=== PATIENT | female | born 1955 ===

== ENCOUNTER 2018-08-14 06:05 | Inpatient (IN) | payer BC ==
[2018-08-07 12:09] VITALS: BMI 25.4
[2018-08-14] MEDS ORDERED: Absorbable Gelatin Sponge Size 12-7 ONE (07:09)
[2018-08-14] MEDS ORDERED: Thrombin Topical 5,000 Int Units Spray Kit ONE (07:10)
[2018-08-14] MEDS ORDERED: Bacitracin Ointment 30 GM TUBE ONE ×2 (07:10→11:06)
[2018-08-14 07:21] LABS: BASO % 0.6 % (0.0-2.0); EOS # 0.3 K/uL (0.0-0.7); EOS % 3.7 % (0.0-4.0); HEMOGLOBIN 12.6 g/dL (12.0-16.0); LYMPH # 1.4 K/uL (1.0-4.3); LYMPH % 19.8 % (20.0-40.0); MEAN CELL VOLUME 79.5 fl (81.0-99.0); MEAN CORPUSCULAR HEMOGLOBIN 25.2 pg (27.0-31.0); MEAN CORPUSCULAR HGB CONC 31.7 g/dL (33.0-37.0); MEAN PLATELET VOLUME 8.7 fl (7.2-11.7); MONO # 0.6 K/uL (0.0-0.8); MONO % 8.3 % (0.0-10.0); NEUT # 4.9 K/uL (1.8-7.0); NEUT % 67.6 % (50.0-75.0); RBC 4.99 Mil/uL (3.80-5.20); WHITE BLOOD COUNT 7.3 K/uL (4.8-10.8)
[2018-08-14] MEDS ORDERED: Etomidate 20 mg/10ml Inj IV ONE (07:21)
[2018-08-14] MEDS ORDERED: Rocuronium 10 mg/ml (5 ml) ONE ×3 (07:21→11:43)
[2018-08-14] MEDS ORDERED: Succinylcholine Chloride 20 mg/ml Syr (5 ml) IV ONE (07:21)
--- NOTE | 2018-08-14 07:26 | CP.PCM.CON ---
History of Present Illness - History of Present Illness History of Present Illness: Orthopedic consultation Dr. Conklin 63F complains of right hip pain failed conservative mgmt and elected for THR. PMH: HTN, DM, chol, asthma, depression, anxiety PSH: left leg, tonsls, c section, varicose vein, hysterectomy, Rotator cuff, fibroid, CCTS no history of bleeding disorder, DVT, CAD/IL, CVA, stents, seizure. ALL; PCN, latex Review of Systems - Review of Systems All systems: reviewed and no additional remarkable complaints except - Musculoskeletal Musculoskeletal: As Per HPI Past Patient History - Past Medical History & Family History Past Medical History?: Yes Past Family History: Reviewed and not pertinent - Past Social History Smoking Status: Never Smoked - CARDIAC Hx Hypercholesterolemia: Yes Hx Hypertension: Yes - PULMONARY Hx Asthma: Yes - NEUROLOGICAL Hx Neurological Disorder: No - HEENT Hx HEENT Problems: No - RENAL Hx Chronic Kidney Disease: No - ENDOCRINE/METABOLIC Hx Endocrine Disorders: Yes Hx Diabetes Mellitus Type 2: Yes - HEMATOLOGICAL/ONCOLOGICAL Hx Blood Disorders: No - INTEGUMENTARY Hx Dermatological Problems: No - MUSCULOSKELETAL/RHEUMATOLOGICAL Hx Arthritis: Yes - GASTROINTESTINAL Hx Gastrointestinal Disorders: No - GENITOURINARY/GYNECOLOGICAL Hx Genitourinary Disorders: No - PSYCHIATRIC Hx Psychophysiologic Disorder: Yes Hx Anxiety: Yes Hx Substance Use: No - SURGICAL HISTORY Other/Comment: BREAST REDUCTION. Both legs vein stripping - ANESTHESIA Hx Anesthesia Reactions: Yes (x1 tachycardia w nausea) Meds Allergies/Adverse Reactions: Allergies Allergy/AdvReac Type Severity Reaction Status Date / Time codeine Allergy ANAPHYLAXIS Verified 08/14/18 07:59 latex Allergy ITCHING Verified 08/07/18 12:07 Penicillins Allergy RASH Verified 08/07/18 12:07 Physical Exam - Constitutional Appears: Well, No Acute Distress - Head Exam Head Exam: ATRAUMATIC - Extremities Exam Additional comments: +DP/PT pulses calves soft NT neg homans - Expanded Lower Extremities Exam Right Ankle exam: FULL ROM, NORMAL INSPECTION Neuro vacular tendon exam: no vascular compromise - Neurological Exam Neurological exam: Alert, Oriented x3 - Psychiatric Exam Psychiatric exam: Normal Affect, Normal Mood - Skin Skin Exam: Dry, Intact, Normal Color, Warm Results - Vital Signs Recent Vital Signs: Last Vital Signs Temp 97.9 F 08/14/18 06:54 Pulse 82 02/07/19 07:07 Resp 18 08/14/18 06:54 BP 126/72 08/14/18 06:54 Pulse Ox 99 08/14/18 06:54 - Labs Result Diagrams: 08/14/18 07:00 Labs: Laboratory Results - last 24 hr 08/14/18 08/14/18 06:50 07:00 WBC 7.3 RBC 4.99 Hgb 12.6 Hct 39.7 MCV 79.5 L MCH 25.2 L MCHC 31.7 L RDW 16.0 H Plt Count 241 MPV 8.7 Neut % (Auto) 67.6 Lymph % (Auto) 19.8 L [place] % (Auto) 8.3 Eos % (Auto) 3.7 Baso % (Auto) 0.6 Neut # (Auto) 4.9 Lymph # (Auto) 1.4 [place] # (Auto) 0.6 Eos # (Auto) 0.3 Baso # (Auto) 0.0 POC Glucose (mg/dL) 141 H Assessment & Plan (1) Primary osteoarthritis of right hip Assessment and Plan: NPO for THR T&C Status: Acute (2) HTN (hypertension) Status: Chronic (3) Diabetes mellitus Status: Chronic (4) Asthma Status: Chronic
[2018-08-14] MEDS ORDERED: Lactated Ringer's 1,000 ML IV ONE ×3 (07:30→09:10)
[2018-08-14] MEDS ORDERED: Tranexamic Acid 1,000 MG in Sodium Chloride 0.9% 100 ML IVPB SCH (07:30)
--- NOTE | 2018-08-14 07:52 | CP.PCM.HP ---
History of Present Illness - History of Present Illness History of Present Illness: Orthopedist: Dr Conklin PCP: Dejan Jonas MD Cardilolgist: Dr Ng Chief complaint: Right hip pain The patient was seen and examined in the [facility] Unit HPI: This is a 63 years old female with hx of DM, Asthma and Osteoarthritis of the right hip. She comes referring pain to the right hip since 2015 and becoming worse. She has failed conventional therapy with Physical Therapy and Analgesics. She has to use a walker to ambulate. Because of This she has decided to have surgical management with replacement of the right hip. No fever, chills, cough, SOB, palpitation diarrhea nor urinary symptoms. PMH: HTN; DM II; Asthma; HLD; Depression and anxiety; Osteoarthritis of the right hip PSH: Left rotator cuff repair x2; Left TKR; Breast Reduction; Vein stripping lower extremities SH: Never smoked; No Alcohol use; No illegal frug use; Live with family FH: States: No known family hx Allergies: PCN; Codeine; Latex Medication: Reviewed Present on Admission - Present on Admission Any Indicators Present on Admission: No History of DVT/PE: No History of Uncontrolled Diabetes: No Urinary Catheter: No Decubitus Ulcer Present: No Review of Systems - Constitutional Constitutional: absent: Anorexia, Chills, Fever - EENT Eyes: Requires Corrective Lenses. absent: Blurred Vision, Diplopia Ears: absent: Decreased Hearing, Ear Discharge, Tinnitus Nose/Mouth/Throat: absent: Epistaxis, Nasal Congestion, Sinus Pain, Sinus Pressure - Cardiovascular Cardiovascular: absent: Chest Pain, Dyspnea, Edema, Lightheadedness, Palpitations - Respiratory Respiratory: absent: Cough, Dyspnea, Wheezing, Snoring, Stridor - Gastrointestinal Gastrointestinal: absent: Abdominal Pain, Constipation, Diarrhea, Nausea, Vomiting - Genitourinary Genitourinary: absent: Dysuria, Flank Pain, Urinary Frequency - Musculoskeletal Musculoskeletal: Arthralgias. absent: Back Pain - Integumentary Integumentary: absent: Pruritus, Rash, Sores, Striae, Swelling - Neurological Neurological: absent: Confusion, Focal Weakness, Weakness - Psychiatric Psychiatric: Anxiety, Depression. absent: Panic Attacks - Endocrine Endocrine: absent: Palpitations, Polydipsia, Polyphagia, Polyuria - Hematologic/Lymphatic Hematologic: absent: Easy Bleeding, Easy Bruising Past Patient History - Past Medical History & Family History Past Medical History?: Yes Past Family History: Reviewed and not pertinent - Past Social History Smoking Status: Never Smoked Chewing Tobacco Use: No Cigar Use: No Alcohol: None Drugs: Denies, Inhalants Home Situation {Lives}: With Family - CARDIAC Hx Hypercholesterolemia: Yes Hx Hypertension: Yes - PULMONARY Hx Asthma: Yes - NEUROLOGICAL Hx Neurological Disorder: No - HEENT Hx HEENT Problems: No - RENAL Hx Chronic Kidney Disease: No - ENDOCRINE/METABOLIC Hx Endocrine Disorders: Yes Hx Diabetes Mellitus Type 2: Yes - HEMATOLOGICAL/ONCOLOGICAL Hx Blood Disorders: No - INTEGUMENTARY Hx Dermatological Problems: No - MUSCULOSKELETAL/RHEUMATOLOGICAL Hx Arthritis: Yes - GASTROINTESTINAL Hx Gastrointestinal Disorders: No - GENITOURINARY/GYNECOLOGICAL Hx Genitourinary Disorders: No - PSYCHIATRIC Hx Psychophysiologic Disorder: Yes Hx Anxiety: Yes Hx Depression: Yes Hx Substance Use: No - SURGICAL HISTORY Hx Orthopedic Surgery: Yes (Left TKR/ Left rotator cuff surgery x2) Other/Comment: BREAST REDUCTION. Both legs vein stripping - ANESTHESIA Hx Anesthesia: Yes Hx Anesthesia Reactions: Yes (x1 tachycardia w nausea) Meds Allergies/Adverse Reactions: Allergies Allergy/AdvReac Type Severity Reaction Status Date / Time codeine Allergy ANAPHYLAXIS Verified 08/14/18 07:59 latex Allergy ITCHING Verified 08/07/18 12:07 Penicillins Allergy RASH Verified 08/07/18 12:07 Physical Exam - Constitutional Appears: No Acute Distress - Head Exam Head Exam: ATRAUMATIC, NORMAL INSPECTION, NORMOCEPHALIC - Eye Exam Eye Exam: EOMI, Normal appearance Pupil Exam: NORMAL ACCOMODATION, PERRL - ENT Exam ENT Exam: Mucous Membranes Moist, Normal Exam, Normal External Ear Exam - Neck Exam Neck exam: Positive for: Normal Inspection. Negative for: Lymphadenopathy, Meningismus, Tenderness - Respiratory Exam Respiratory Exam: Clear to Auscultation Bilateral. absent: Rales, Rhonchi, Wheezes - Cardiovascular Exam Cardiovascular Exam: REGULAR RHYTHM, RRR, +S1, +S2. absent: Gallop, JVD - GI/Abdominal Exam GI & Abdominal Exam: Normal Bowel Sounds, Soft. absent: Mass, Organomegaly, Tenderness - Rectal Exam Rectal Exam: Deferred - Extremities Exam Extremities exam: Positive for: normal inspection Additional comments: Pain to the right hip on walking. Pain to the left ankle on palpation. - Back Exam Back exam: NORMAL INSPECTION. absent: CVA tenderness (L), CVA tenderness (R) - Neurological Exam Neurological exam: Alert, CN II-XII Intact, Oriented x3, Reflexes Normal - Psychiatric Exam Psychiatric exam: Normal Affect, Normal Mood - Skin Skin Exam: Dry, Intact, Normal Color, Warm Results - Vital Signs Recent Vital Signs: Last Vital Signs Temp 97.9 F 08/14/18 06:54 Pulse 82 08/14/18 07:07 Resp 18 08/14/18 06:54 BP 126/72 08/14/18 06:54 Pulse Ox 99 08/14/18 06:54 - Labs Result Diagrams: 08/14/18 07:00 Labs: Laboratory Results - last 24 hr 08/14/18 08/14/18 08/14/18 06:50 07:00 07:00 WBC 7.3 RBC 4.99 Hgb 12.6 Hct 39.7 MCV 79.5 L MCH 25.2 L MCHC 31.7 L RDW 16.0 H Plt Count 241 MPV 8.7 Neut % (Auto) 67.6 Lymph % (Auto) 19.8 L [place] % (Auto) 8.3 Eos % (Auto) 3.7 Baso % (Auto) 0.6 Neut # (Auto) 4.9 Lymph # (Auto) 1.4 [place] # (Auto) 0.6 Eos # (Auto) 0.3 Baso # (Auto) 0.0 POC Glucose (mg/dL) 141 H BBK History Checked No verified bt Assessment & Plan - Assessment and Plan (Free Text) Plan: 63 years old female with hx of DM, Asthma and Osteoarthritis of the right hip. She comes referring pain to the right hip since 2014 and becoming worse. She has failed conventional therapy with Physical Therapy and Analgesics. She has to use a walker to ambulate. Because of This she has decided to have surgical management with replacement of the right hip. #. Osteoarthritis of the right hip - Consult Orthopedic Dr Conklin - Orthopedic management - Pain management - OT/PT #. DM II - Lispro sliding scale according to accucheck - restart Januvia post surgery - Restart Glucophage post surgery if no contrast dye used #. HTN - Cozaat To begin post surgery - HCTZ if not dehydrated nor electrolyte imbalance #. Asthma - Singular - PRN Albuterol #. HLD - lipitor #. Depression and Anxiety - xanax - Cymbalta #. DVT Prophylaxis with anticoagulant On POD#1 - SCD while in bed #. Peptic ulcer prophylaxis #. Code status: Full This patient was cleared for surgery by his PMD Dr Jonas and the news analyst Dr Ng. I agree that this patient is cleared for surgery with mild to moderate cardiac and pulmonary risks. Harvey Herrera MD - Date & Time Date: 08/14/18 Time: 07:52
[2018-08-14] MEDS ORDERED: Lidocaine 1% Inj (20ml) ONE (07:57)
[2018-08-14] MEDS ORDERED: EPINEPHrine 1 mg/ml (1:1000) Inj ONE (07:57)
[2018-08-14] MEDS ORDERED: Midazolam 2 MG/2 ML VIAL ONE (08:07)
[2018-08-14] MEDS ORDERED: Morphine 1 mg/ml preservative-free Inj(Duramorph) ONE (08:08)
[2018-08-14] MEDS ORDERED: Sevoflurane - Inhalation Anesthetic Liq (250 ml) ONE (08:31)
[2018-08-14] MEDS ORDERED: EPINEPHrine 1 mg/ml (1:1000) Inj IV ONE (10:00)
[2018-08-14] MEDS ORDERED: Sodium Chloride 0.9% 500 ML IV ONE ×2 (11:00→18:33)
[2018-08-14] MEDS ORDERED: Phenylephrine 10 mg/ml Inj ONE (11:26)
[2018-08-14] MEDS ORDERED: Neostigmine 1:1000 (1 mg/ml) Inj ONE (12:03)
[2018-08-14] MEDS ORDERED: Bisacodyl 5mg EC Tab PO PRN (12:54)
[2018-08-14] MEDS ORDERED: Lactated Ringer's 1,000 ML IV SCH (13:00)
[2018-08-14] MEDS ORDERED: Sodium Chloride 0.9% 1,000 ML IV SCH ×2 (13:00→20:43)
--- NOTE | 2018-08-14 14:20 | RAD ---
Date of service: 08/14/2018 PROCEDURE: Pelvis right hip HISTORY: pt in pacu s/p THR COMPARISON: None TECHNIQUE: Standard protocol for this study/examination. FINDINGS: Satisfactory appearance/alignment of components right FLAQUITA. Expected findings in the adjacent soft tissues. IMPRESSION: Satisfactory postoperative status.
--- NOTE | 2018-08-14 16:02 | PCM.SURG1 ---
Surgeon's Initial Post Op Note - Surgeon's Notes Surgeon: Katerin Uplands Division Director: ROMI Garcia Type of Anesthesia: General Endo, Spinal Anesthesia Administered By: DR nevarez Pre-Operative Diagnosis: Primary Osteoarthritis R hip Operative Findings: as nabove. synovitis R hip Post-Operative Diagnosis: as above Operation Performed: R THR- anterior approach. femoral neck osteotomy. arthrotomy/synovectomy. release iliopsoas tendon. computer navigation Specimen/Specimens Removed: bone/ synovium/ cartilage Estimated Blood Loss: EBL {In ML}: 380 Blood Products Given: PRBC Drains Used: No Drains Post-Op Condition: Fair Date of Surgery/Procedure: 08/14/18 Time of Surgery/Procedure: 09:20 (time i8n room 7:55/ anaesthesia induction time)
[2018-08-14] MEDS ORDERED: STERILE IRRIGATING SOLUTION 15 ML IR ONE (16:22)
[2018-08-14] MEDS: Clindamycin 600mg/50ml D5W 600 MG/50 ML VIAL IVPB SCH (17:10)
[2018-08-14] MEDS ORDERED: Dextrose 50% SYRINGE Inj (50 ml) IV PRN (17:53)
[2018-08-14] MEDS ORDERED: Glucagon Recombinant 1 mg Inj IM PRN (17:53)
[2018-08-14] MEDS ORDERED: Albuterol HFA 90 mcg/actuation (8 g) INH PRN (17:57)
[2018-08-14] MEDS: Artificial Tears Opht Soln OU PRN (18:28)
--- NOTE | 2018-08-14 18:28 | CP.CCUPN ---
CCU Subjective - Physician Review Subjective (Free Text): 08/14/18 18:24 The patient was Seen/interviewed and examined by me at the bedside, Medical records reviewed and Management issues were discussed and formulated with the house staff. Events reviewed 63 years old female with PMHx of HTN, DM, Asthma and Osteoarthritis of the right hip (failed conventional therapy with Physical Therapy and Analgesics.) Admitted to the ICU following R THR- anterior approach. Procedure done under General Endo, Spinal Anesthesia and was uneventful EBL {In ML}: 380 Patient was successfully extubated, admitted to ICU hemodynamically stable, denies any chest pain or SOB CCU Objective - Vital Signs / Intake & Output Vital Signs (Last 4 hours): Vital Signs Temp Pulse Resp BP Pulse Ox 08/14/18 16:22 20 08/14/18 16:00 98.3 F 90 17 102/52 L 96 08/14/18 15:20 99 F 94 H 18 114/63 100 08/14/18 15:00 94 H 16 108/57 L 100 08/14/18 14:45 95 H 17 101/61 100 08/14/18 14:30 99 F 93 H 17 103/57 L 100 Intake and Output (Last 8hrs): Intake & Output 08/14/18 08/14/18 08/14/18 06:59 14:59 22:59 Intake Total 2675 250 Balance 2675 250 Intake: IV 2450 100 Oral 150 Blood Product 225 Other: Voiding Method Toilet - Physical Exam Head: Positive for: Atraumatic, Normocephalic Pupils: Positive for: PERRL Extroacular Muscles: Positive for: EOMI Conjunctiva: Positive for: Normal Mouth: Positive for: Moist Mucous Membranes Nose (Internal): Positive for: Normal Inspection Neck: Positive for: Normal Range of Motion, Trachea Midline. Negative for: Meningeal Signs, MIDLINE TENDERNESS, Paraspinal Tenderness, JVD, Lymphadenopathy, Bruit, Other Respiratory/Chest: Positive for: Clear to Auscultation, Good Air Exchange. Negative for: Respiratory Distress, Accessory Muscle Use Cardiovascular: Positive for: Regular Rate and Rhythm, Normal S1, S2. Negative for: Murmurs Abdomen: Positive for: Normal Bowel Sounds. Negative for: Tenderness, Distention Upper Extremity: Positive for: Normal Inspection, Capillary Refill < 2s. Negative for: Cyanosis, Edema Lower Extremity: Positive for: Normal Inspection, Capillary Refill < 2 s. Negative for: Edema, CALF TENDERNESS Neurological: Positive for: GCS=15, CN II-XII Intact, Speech Normal, Motor Func Grossly Intact, Normal Sensory Function Psychiatric: Positive for: Alert, Oriented x 3, Normal Insight, Normal Concentration - Medications Active Medications: Active Medications Generic Name Dose Route Start Last Admin Trade Name Freq PRN Reason Stop Dose Admin Acetaminophen 650 mg 08/14/18 16:00 Tylenol 325mg Tab PO Q6 MARIELA Albuterol 1 puff 08/14/18 17:57 Ventolin Hfa 90 Mcg/Actuation (8 G) INH RQ6 PRN Shortness of Breath Alprazolam 1 mg 08/15/18 09:00 Xanax PO TID [facility] Artificial Tears 2 drop 08/14/18 17:53 Artificial Tears OU Q4 PRN Dry eyes Aspirin 81 mg 08/15/18 09:00 Aspirin Chewable PO DAILY [facility] Atorvastatin Calcium 40 mg 08/14/18 22:00 Lipitor PO HS MARIELA Bisacodyl 10 mg 08/14/18 12:54 Dulcolax PO HS PRN Constipation Calcium Carbonate 1 mg 08/14/18 18:00 Oscal PO ASDIR MARIELA Dextrose 0 ml 08/14/18 17:53 Dextrose 50% Inj IV STAT PRN Hypoglycemia Protocol Protocol Dextrose 0 gm 08/14/18 17:53 Glutose 15 PO ONCE PRN Hypoglycemia Protocol Protocol Docusate Sodium 100 mg 08/14/18 17:00 08/14/18 18:09 Colace PO 100 mg BID MARIELA Administration Duloxetine HCl 60 mg 08/14/18 22:00 Cymbalta PO HS MARIELA Enoxaparin Sodium 40 mg 08/15/18 09:00 Lovenox SC DAILY [facility] Protocol Glucagon 0 mg 08/14/18 17:53 Glucagen Diagnostic Kit IM STAT PRN Hypoglycemia Protocol Protocol Home Med 1 inh 08/14/18 17:48 Budesonide/Formoterol Fumarate [Symbicort 160-4.5 Mcg Inhaler] INH BID PRN Allergy symptoms Hydrochlorothiazide 25 mg 08/15/18 09:00 Hydrodiuril PO DAILY [facility] Lactated Ringer's 1,000 mls @ 50 mls/hr 08/14/18 13:00 08/14/18 13:32 Lactated Ringer's IV 100 mls .Q20H MARIELA Administration Clindamycin Phosphate 600 mg in 50 mls @ 100 mls/hr 08/14/18 16:00 08/14/18 17:10 Cleocin IVPB 08/15/18 00:29 100 mls/hr Q8H MARIELA Administration Protocol Sodium Chloride 1,000 mls @ 80 mls/hr 08/14/18 13:00 08/14/18 18:08 Sodium Chloride 0.9% IV 08/15/18 01:29 80 mls/hr .[id number] MARIELA Administration Insulin Human Lispro 0 units 08/14/18 22:00 Humalog SC ACHS MARIELA Protocol Losartan Potassium 100 mg 08/15/18 09:00 Cozaar PO DAILY MARIELA Memantine 20 mg 08/14/18 22:00 Namenda PO HS [facility] Metformin HCl 1,000 mg 08/15/18 09:00 Glucophage PO BID MARIELA Montelukast Sodium 10 mg 08/15/18 09:00 Singulair PO DAILY [facility] Ondansetron HCl 4 mg 08/14/18 12:54 Zofran Inj IVP Q6 PRN Nausea/Vomiting Sitagliptin Phosphate 10 mg 08/14/18 22:00 Januvia PO HS [facility] - Patient Studies Lab Studies: Lab Studies 08/14/18 08/14/18 08/14/18 Range/Units 16:45 13:00 08:04 WBC (4.8-10.8) K/uL RBC (3.80-5.20) Mil/uL Hgb (12.0-16.0) g/dL Hct (34.0-47.0) % MCV (81.0-99.0) fl MCH (27.0-31.0) pg MCHC (33.0-37.0) g/dL RDW (11.5-14.5) % Plt Count (130-400) K/uL MPV (7.2-11.7) fl Neut % (Auto) (50.0-75.0) % Lymph % (Auto) (20.0-40.0) % [place] % (Auto) (0.0-10.0) % Eos % (Auto) (0.0-4.0) % Baso % (Auto) (0.0-2.0) % Neut # (Auto) (1.8-7.0) K/uL Lymph # (Auto) (1.0-4.3) K/uL [place] # (Auto) (0.0-0.8) K/uL Eos # (Auto) (0.0-0.7) K/uL Baso # (Auto) (0.0-0.2) K/uL POC Glucose (mg/dL) 214 H 208 H (65-110) mg/dL Blood Type Blood Type Confirm O POSITIVE Antibody Screen Crossmatch BBK History Checked 08/14/18 08/14/18 08/14/18 Range/Units 07:00 07:00 06:50 WBC 7.3 (4.8-10.8) K/uL RBC 4.99 (3.80-5.20) Mil/uL Hgb 12.6 (12.0-16.0) g/dL Hct 39.7 (34.0-47.0) % MCV 79.5 L (81.0-99.0) fl MCH 25.2 L (27.0-31.0) pg MCHC 31.7 L (33.0-37.0) g/dL RDW 16.0 H (11.5-14.5) % Plt Count 241 (130-400) K/uL MPV 8.7 (7.2-11.7) fl Neut % (Auto) 67.6 (50.0-75.0) % Lymph % (Auto) 19.8 L (20.0-40.0) % [place] % (Auto) 8.3 (0.0-10.0) % Eos % (Auto) 3.7 (0.0-4.0) % Baso % (Auto) 0.6 (0.0-2.0) % Neut # (Auto) 4.9 (1.8-7.0) K/uL Lymph # (Auto) 1.4 (1.0-4.3) K/uL [place] # (Auto) 0.6 (0.0-0.8) K/uL Eos # (Auto) 0.3 (0.0-0.7) K/uL Baso # (Auto) 0.0 (0.0-0.2) K/uL POC Glucose (mg/dL) 141 H (65-110) mg/dL Blood Type O POSITIVE Blood Type Confirm Antibody Screen Negative Crossmatch See Detail BBK History Checked No verified bt Laboratory Results - last 24 hr 08/14/18 08/14/18 08/14/18 06:50 07:00 07:00 WBC 7.3 RBC 4.99 Hgb 12.6 Hct 39.7 MCV 79.5 L MCH 25.2 L MCHC 31.7 L RDW 16.0 H Plt Count 241 MPV 8.7 Neut % (Auto) 67.6 Lymph % (Auto) 19.8 L [place] % (Auto) 8.3 Eos % (Auto) 3.7 Baso % (Auto) 0.6 Neut # (Auto) 4.9 Lymph # (Auto) 1.4 [place] # (Auto) 0.6 Eos # (Auto) 0.3 Baso # (Auto) 0.0 POC Glucose (mg/dL) 141 H Blood Type O POSITIVE Blood Type Confirm Antibody Screen Negative Crossmatch See Detail BBK History Checked No verified bt 08/14/18 08/14/18 08/14/18 08:04 13:00 16:45 WBC RBC Hgb Hct MCV MCH MCHC RDW Plt Count MPV Neut % (Auto) Lymph % (Auto) [place] % (Auto) Eos % (Auto) Baso % (Auto) Neut # (Auto) Lymph # (Auto) [place] # (Auto) Eos # (Auto) Baso # (Auto) POC Glucose (mg/dL) 208 H 214 H Blood Type Blood Type Confirm O POSITIVE Antibody Screen Crossmatch BBK History Checked Radiology Impressions: Radiology Impressions Hip/Pelvis X-Ray 08/14/18 13:00 IMPRESSION: Satisfactory postoperative status. Fingerstick Blood Sugar Results: 214 Review of Systems - Cardiovascular Cardiovascular: absent: As Per HPI, Acrocyanosis, Chest Pain, Chest Pain at Rest, Chest Pain with Activity, Claudication, Diaphoresis, Dyspnea, Dyspnea on Exertion, Edema, Irregular Heart Rhythm, Pain Radiating to Arm/Neck/Jaw, Leg Edema, Leg Ulcers, Lightheadedness, Orthopnea, Palpitations, Paroxysmal Nocturnal Dyspnea, Pedal Edema, Radiating Pain, Rapid Heart Rate, Slow Heart Rate, Syncope, Other, UNREMARKABLE - Respiratory Respiratory: absent: As Per HPI, Cough, Dyspnea, Hemoptysis, Dyspnea on Exertion, Wheezing, Snoring, Stridor, Pain on Inspiration, Chest Congestion, Excessive Mucous Production, Change in Mucous Color, Pain with Coughing, Other, UNREMARKABLE Critical Care Progress Note - Extremities/Vascular Does the Patient have a Central Venous Catheter?: No Does the Patient need a Central Venous Catheter?: No Does the Patient have a Islas Catheter?: No Does the Patient need a Islas Catheter?: No - Nutrition Nutrition: Nutrition Category Date Time Status Consistent Carbohydrate [DIET] Diets 08/14/18 Dinner Active Assessment/Plan (1) Primary osteoarthritis of right hip Current Visit: Yes Status: Acute (2) Asthma Current Visit: Yes Status: Chronic (3) Diabetes mellitus Current Visit: Yes Status: Chronic (4) HTN (hypertension) Current Visit: Yes Status: Chronic - Assessment and Plan (Free Text) Assessment: Admit to ICU for hemodynamic monitoring, also since she received Spinal Anesthesia and she is allergic to Codeine, She received Solumedrol, Pepcid and Benadryl Monitor Respiratory status for Respiratory depression PRN Naloxone for RR<8 IV Hydration with LR @ 100 ml/hr Perioperative Antibiotics as per Ortho NPO until fully awake and can pass the nurse bedside swallow evaluation. Clear liquid diet, Advance as tolerate PT/OT PER ORTHO Monitor urine output Restart outpatient meds BD nebs Q 6h PRN PRN Ondansetron Tight glycemic control, RISS with Coverage OOB chair, fall precautions, aspiration precaution Incentive spirometry GI/DVT PPX with SCDs, Pepcid, Start LMWH in AM if no bleed.
--- NOTE | 2018-08-14 19:16 | CP.PCM.PN ---
Subjective - Date & Time of Evaluation Date of Evaluation: 08/14/18 Time of Evaluation: 18:54 - Subjective Subjective: Patient resting comfortably in bed, denies pain and shortness of breath complained of mild puritis typical of neuraxial anesthesia with intrathecal opioids now resolved. Objective - Vital Signs/Intake and Output Vital Signs (last 24 hours): Temp Pulse Resp BP Pulse Ox 98.3 F 90 20 102/52 L 96 08/14/18 16:00 08/14/18 16:00 08/14/18 16:22 08/14/18 16:00 08/14/18 16:00 Intake and Output: 08/14/18 08/14/18 06:59 18:59 Intake Total 2925 Balance 2925 - Medications Medications: Current Medications Acetaminophen (Tylenol 325mg Tab) 650 mg PO Q6 [facility] Albuterol (Ventolin Hfa 90 Mcg/Actuation (8 G)) 1 puff INH RQ6 PRN PRN Reason: Shortness of Breath Alprazolam (Xanax) 1 mg PO TID [facility] Artificial Tears (Artificial Tears) 2 drop OU Q4 PRN PRN Reason: Dry eyes Last Admin: 08/14/18 18:28 Dose: 2 curt Aspirin (Aspirin Chewable) 81 mg PO DAILY [facility] Atorvastatin Calcium (Lipitor) 40 mg PO HS [facility] Bisacodyl (Dulcolax) 10 mg PO HS PRN PRN Reason: Constipation Calcium Carbonate (Oscal) 500 mg PO TID [facility] Dextrose (Dextrose 50% Inj) 0 ml IV STAT PRN; Protocol PRN Reason: Hypoglycemia Protocol Dextrose (Glutose 15) 0 gm PO ONCE PRN; Protocol PRN Reason: Hypoglycemia Protocol Docusate Sodium (Colace) 100 mg PO BID [facility] Last Admin: 08/14/18 18:09 Dose: 100 mg Duloxetine HCl (Cymbalta) 60 mg PO HS [facility] Enoxaparin Sodium (Lovenox) 40 mg SC DAILY [facility]; Protocol Glucagon (Glucagen Diagnostic Kit) 0 mg IM STAT PRN; Protocol PRN Reason: Hypoglycemia Protocol Hydrochlorothiazide (Hydrodiuril) 25 mg PO DAILY [facility] Lactated Ringer's (Lactated Ringer's) 1,000 mls @ 50 mls/hr IV .Q20H [facility] Last Admin: 08/14/18 13:32 Dose: 100 mls Clindamycin Phosphate (Cleocin) 600 mg in 50 mls @ 100 mls/hr IVPB Q8H [facility]; Protocol Stop: 08/15/18 00:29 Last Admin: 08/14/18 17:10 Dose: 100 mls/hr Sodium Chloride (Sodium Chloride 0.9%) 1,000 mls @ 80 mls/hr IV .[id number] [facility] Stop: 08/15/18 01:29 Last Admin: 08/14/18 18:08 Dose: 80 mls/hr Sodium Chloride (Sodium Chloride 0.9%) 500 mls @ 250 mls/hr IV .Q2H [facility] Stop: 08/14/18 20:32 Insulin Human Lispro (Humalog) 0 units SC ACHS [facility]; Protocol Losartan Potassium (Cozaar) 100 mg PO DAILY [facility] Memantine (Namenda) 20 mg PO HS [facility] Metformin HCl (Glucophage) 1,000 mg PO BID [facility] Montelukast Sodium (Singulair) 10 mg PO DAILY [facility] Ondansetron HCl (Zofran Inj) 4 mg IVP Q6 PRN PRN Reason: Nausea/Vomiting Fluticasone/Salmeterol (Advair Diskus 250/50) 1 puff INH Q12 [facility] Sitagliptin Phosphate (Januvia) 100 mg PO HS [facility] - Labs Labs: 08/14/18 07:00 - Constitutional Appears: Well - Head Exam Head Exam: NORMAL INSPECTION - Eye Exam Eye Exam: Normal appearance. absent: Periorbital swelling - ENT Exam ENT Exam: Mucous Membranes Moist Additional comments: No lingual swelling - Respiratory Exam Respiratory Exam: NORMAL BREATHING PATTERN. absent: Wheezes, Respiratory Distress, Stridor - Cardiovascular Exam Cardiovascular Exam: REGULAR RHYTHM - Skin Skin Exam: absent: Urticaria Assessment and Plan - Assessment and Plan (Free Text) Assessment: 63 y/o female s/p right total hip arthroplasty. Patient examined and interviewed prior to procedure. At that time Mrs. Bruno confirmed allergies to latex and PCN and also denied all other drug allergies when asked directly. PMD note does not document codeine allergy. No codeine allergy documented prior to procedure start time. The patient received intrathecal morphine as part of balanced anesthetic. After the procedure the patient's family gave vague history involving anaphylactic reaction to "some medication with codine" but she has taken percocet without allergic reaction. Plan: There was no indication of acute allergic reaction during surgery. The patient vital signs remained stable and peak airway pressures remained in normal range throughout the case. The patient had an ETT cuff leak prior to extubation. Upon extubation the patient's vital signs remained stable and the was no subjective or objective respiratory distress. However, given the severity of the reaction r eported by Mrs. Bruno's family she was treated empirically for an acute allergic reaction with corticosteroids as well as antihistamines. She will be observed in the ICU overnight. There is no indication of an allergic reaction at this time.
[2018-08-14] MEDS: DiphenhydrAMINE 50 mg/ml Inj IVP PRN (19:53)
[2018-08-14] MEDS: Fluticasone-Salmeterol 250-50mcg Diskus INH SCH (21:50)
[2018-08-14] MEDS: Insulin Lispro (humaLOG) 100 Units/ml Inj SC SCH (22:31)
[2018-08-14] MEDS ORDERED: DiphenhydrAMINE 50 mg/ml Inj IVP STA (22:32)
[2018-08-15] MEDS: Clindamycin 600mg/50ml D5W 600 MG/50 ML VIAL IVPB SCH (01:30)
[2018-08-15] MEDS: Artificial Tears Opht Soln OU PRN ×2 (01:54→09:12)
[2018-08-15] MEDS: DiphenhydrAMINE 50 mg/ml Inj IVP PRN (03:04)
--- NOTE | 2018-08-15 05:10 | OP ---
PROCEDURE DATE: 08/14/2018 PREOPERATIVE DIAGNOSIS: Osteoarthritis of the right hip, primary. POSTOPERATIVE DIAGNOSES: Primary osteoarthritis of the right hip, synovitis of the right hip. OPERATIVE FINDINGS: 1. Osteoarthritis of the right hip. 2. Synovitis of the right hip. 3. Iliopsoas tendon contracture. SURGEON: Tariq Coknlin MD ANDROID UI DEVELOPER: Debbie Healy, certified registered nursing emergency veterinary assistant. SECOND MIXING MACHINE TENDER: Damián Gudino PA-C OPERATION PERFORMED: 1. Right total hip replacement, anterior approach. 2. Femoral neck osteotomy (femoral neck osteotomy was given a secondary and separate diagnosis CPT code because of the complexity of obtaining the leg length equality. This accomplished with computer navigation). 3. Arthrotomy, synovectomy. 4. Release iliopsoas tendon. 5. Computer navigation. SPECIMENS REMOVED: Bone, synovium, cartilage. BLOOD LOSS: Approximately 380 mL. BLOOD PRODUCTS GIVEN: 1 unit of packed red blood cells. COMPLICATIONS: None. DRAINS: None. CONDITION: Stable. TIME OF SURGERY: Time in the room 07:55, incision time 09:20. OPERATIVE INDICATION: Sheridan Bruno is a young appearing 63-year-old woman who presents with arthritis of the right hip. The patient has failed conservative management. Pros, cons, risks and benefits of surgical approach were discussed. The concept of a dual mobility anterior approach total hip replacement has been discussed. The possibility of mechanical failure, infection, thromboembolic disease, recurrent dislocation, leg length inequality, secondary or tertiary surgery was discussed. The patient can no longer understand the discomfort and wished the surgery to be accomplished. OPERATIVE PROCEDURE: After having obtained informed consent in the above fashion, after the satisfactory induction of spinal and general anesthesia by Dr. Elmer Watson, after having identified the side, site and procedure and a critical pause/time-out after the satisfactory induction of the anesthetic, the patient identified as Sheridan Bruno in the supine position with all bony prominences well padded. The right lower extremity was prepped and free draped in the usual fashion for lower extremity surgery. [facility] traction positioner was employed. Under the surgeon's direction, the fluoroscope was positioned, video images were generated, therapeutic decisions were made therefrom. This having been accomplished again after having identified the side, site and procedure and a critical pause/time-out after the satisfactory induction of the anesthetic. Verification of the position was offered on image intensification views. After sterilely prepping and draping and after assembling the computer for computer navigation, the topographic anatomy of the hip was marked, the anterior superior iliac spine, the greater trochanter. An incision was described one fingerbreadth distal to the anterior aspect of the ASIS and four fingerbreadths distal to that approximately 3-1/2 to 4 inches in extent. This having been accomplished, the incision located three fingerbreadths posterior to the ASIS, superficial to the belly of the tensor fascia femoris muscle. The incision was again 3-1/2 to 4 inches in extent. The skin incision was carried down through the skin and subcutaneous tissue. Hemostasis controlled with Aquamantys. The fascia of the tensor fascia femoris was identified and carefully divided. The muscle was taken down from the investing fascia, and the Medacta Adson-Vargas retractor was placed. The posterior aspect of the muscle belly of the rectus femoris was identified. Hemostasis controlled with the Aquamantys. The plane inferior in the area of the fat plane is developed. A branch of the anterior aspect of the lateral femoral circumflex vessels was identified and was coagulated with the Aquamantys. The Adson-Vargas retractor, Medacta modification was placed deeper and horizontally. The fat superficial to the capsule was identified. The anterior branch of the lateral femoral circumflex vessels was identified and was controlled with suture ligature using electrocautery. The fascia was divided. The pericapsular fat was identified and was removed. The fat pad was removed as well. The acetabular margin was identified and taken down. This having been accomplished, the capsule was taken down to the area of the intertrochanteric prominence. The intertrochanteric tubercle was identified. The capsule was elevated and tagged. This having been accomplished, the capsule was divided a bit superiorly as well. This having been accomplished at this point in time, the computer navigation commences at a point approximately two fingerbreadths posterior to the anterior superior iliac spine. Using #11 blade, the two supporting threaded screws were introduced and at this point in time, the accelerometer and the optical camera were placed. This having been accomplished, the anterior pelvic plane was registered using the probe. The left anterior superior iliac spine was registered. The right anterior superior iliac spine was registered as well rendering the frontal plane of the pelvis. This having been accomplished, attention was turned back to the dissection, and the capsule having been elevated. Verification of position was offered on image intensification views. The femoral neck osteotomy was accomplished with leg-length control. The disk for the control of leg lengths had been placed on the anterior lateral aspect of the greater trochanter. Femoral neck osteotomy was accomplished. Verification of position was offered on image intensification views. At this point in time with the two turns of traction and external rotation at 25 degrees, the corkscrew was introduced into the cut femoral neck. This having been accomplished, the femoral head is registered and removed from the acetabulum. The labrum was removed as well. At this point in time, the acetabulum was exposed. The Charnley retractor having been placed deep, the acetabulum was exposed. Sequential reaming was carried out to 52 mm. Reaming was denuded of articular cartilage. At this point in time, the mouth was reamed open to 52 mm. Trialing was accomplished and found to be acceptable. Verification of position was offered by computer navigation of 40-41 degrees of abduction, inclination and approximately 17-18 degrees of anteversion. This having been accomplished, the reamings denuded of articular cartilage were used to bone graft the acetabulum. The cup was introduced and again verification of position notes 41 degrees of abduction and 17-18 degrees of anteversion. This having been accomplished, the cup having been impacted. The position was found to be excellent. Attention was turned to the femur. The iliopsoas tendon was found to be contracted, and iliopsoas tendon release was accomplished as was the pubofemoral ligament. The pubofemoral ligament was released. At this point time with external rotation of the femur, the femur was hyperflexed. Attention was turned to the leg lengths. This having been registered, the bridge of bone between the neck and the trochanter was removed. The canal was entered. The bur was used to enter the canal. The canal was further entered. The bridge of bone between the neck and the trochanter was removed using the box chisel. At this point in time, the rasp was introduced, and broaching was accomplished to a #2 femoral broach. This having been accomplished, the -3.5-mm head was applied to the neck to keep appropriate outer bearing. Trialing was accomplished. The hip was found to be stable in all planes. Verification of position was offered on image intensification views. This having been accomplished, the leg length positioning having been acceptable. The pins were removed from the anterior superior iliac spine. The #2 Medacta collarless femoral component was impacted. The -3.5 mm ceramic with a 52-mm polyethylene outer bearing was made on the back table. This was applied to the femoral stem. The hip was reduced and was found to be stable in all planes. It should be noted again the iliopsoas tendon was released. The wound was thoroughly irrigated. Hemostasis was controlled with thrombin and Gelfoam and with the FloSeal. This having been accomplished, the disk was removed. The pins were removed from the anterior superior iliac spine. The wound was thoroughly irrigated. Autograft bone grafting was carried out to the femur as it was on the acetabulum. Closures in layers with 0 Quill for the fascia on the tensor fascia femoris followed by 0 Vicryl, 2-0 Vicryl, richard for skin. The punctures in the anterior superior iliac spine were closed with interrupted Vicryl and Dermabond. Compression dressing was applied. Postoperative verification reveals excellent position of the construct. Measurement on postoperative x-ray reveals 41 degrees of abduction and 18 degrees of anteversion concordant with the W[employer]ETIVI computer navigation. The patient was transferred from the operating table to the stretcher, having tolerated the procedure well. Tariq Conklin MD
[2018-08-15 05:16] LABS: HEMOGLOBIN 10.1 g/dL (12.0-16.0); MEAN CORPUSCULAR HGB CONC 32.1 g/dL (33.0-37.0); RBC 3.88 Mil/uL (3.80-5.20); RED CELL DISTRIBUTION WIDTH 16.8 % (11.5-14.5); WHITE BLOOD COUNT 8.2 K/uL (4.8-10.8)
[2018-08-15 05:26] LABS: BLOOD UREA NITROGEN 11 mg/dl (7-17); GFR NON-AFRICAN AMERICAN > 60
[2018-08-15] MEDS: Insulin Lispro (humaLOG) 100 Units/ml Inj SC SCH ×2 (07:55→11:39)
--- NOTE | 2018-08-15 08:24 | CP.PCM.PN ---
Subjective - Date & Time of Evaluation Date of Evaluation: 08/15/18 Time of Evaluation: 08:22 - Subjective Subjective: Patient complained of itching overnight. Pain in hip controlled. Denies CP/SOB/dizziness/difficulty breathing/numbness/tingling. Objective - Vital Signs/Intake and Output Vital Signs (last 24 hours): Temp Pulse Resp BP Pulse Ox 98.5 F 71 20 110/58 L 99 08/15/18 08:00 08/15/18 08:00 08/15/18 08:00 08/15/18 08:00 08/15/18 08:00 Intake and Output: 08/15/18 08/15/18 06:59 18:59 Intake Total 1330 Output Total 1575 Balance -245 - Medications Medications: Current Medications Acetaminophen (Tylenol 325mg Tab) 650 mg PO Q6 PRN PRN Reason: Other Acetaminophen (Tylenol 325mg Tab) 650 mg PO Q6 PRN PRN Reason: Other Last Admin: 08/15/18 01:52 Dose: 650 mg Albuterol (Ventolin Hfa 90 Mcg/Actuation (8 G)) 1 puff INH RQ6 PRN PRN Reason: Shortness of Breath Alprazolam (Xanax) 1 mg PO TID [facility] Artificial Tears (Artificial Tears) 2 drop OU Q4 PRN PRN Reason: Dry eyes Last Admin: 08/15/18 01:54 Dose: 2 drp Aspirin (Aspirin Chewable) 81 mg PO DAILY [facility] Atorvastatin Calcium (Lipitor) 40 mg PO HS [facility] Last Admin: 08/14/18 21:53 Dose: 40 mg Bisacodyl (Dulcolax) 10 mg PO HS PRN PRN Reason: Constipation Calcium Carbonate (Oscal) 500 mg PO TID [facility] Last Admin: 08/14/18 21:55 Dose: 500 mg Dextrose (Dextrose 50% Inj) 0 ml IV STAT PRN; Protocol PRN Reason: Hypoglycemia Protocol Dextrose (Glutose 15) 0 gm PO ONCE PRN; Protocol PRN Reason: Hypoglycemia Protocol Diphenhydramine HCl (Benadryl) 25 mg IVP Q6 PRN PRN Reason: Itching / Pruritus Last Admin: 08/15/18 03:04 Dose: 25 mg Docusate Sodium (Colace) 100 mg PO BID [facility] Last Admin: 08/14/18 18:09 Dose: 100 mg Duloxetine HCl (Cymbalta) 60 mg PO HS [facility] Last Admin: 08/14/18 21:53 Dose: 60 mg Enoxaparin Sodium (Lovenox) 40 mg SC DAILY [facility]; Protocol Glucagon (Glucagen Diagnostic Kit) 0 mg IM STAT PRN; Protocol PRN Reason: Hypoglycemia Protocol Hydrochlorothiazide (Hydrodiuril) 25 mg PO DAILY [facility] Hydrocortisone (Cortizone 1% Cream) 1 applic TOP BID [facility] Last Admin: 08/15/18 01:53 Dose: 1 applic Sodium Chloride (Sodium Chloride 0.9%) 1,000 mls @ 125 mls/hr IV .Q8H [facility] Stop: 08/15/18 12:42 Last Admin: 08/14/18 20:45 Dose: 125 mls/hr Insulin Human Lispro (Humalog) 0 units SC ACHS [facility]; Protocol Last Admin: 08/15/18 07:55 Dose: 1 u Losartan Potassium (Cozaar) 100 mg PO DAILY [facility] Memantine (Namenda) 20 mg PO HS [facility] Last Admin: 08/14/18 21:53 Dose: 20 mg Metformin HCl (Glucophage) 1,000 mg PO BID [facility] Montelukast Sodium (Singulair) 10 mg PO DAILY [facility] Ondansetron HCl (Zofran Inj) 4 mg IVP Q6 PRN PRN Reason: Nausea/Vomiting Fluticasone/Salmeterol (Advair Diskus 250/50) 1 puff INH Q12 [facility] Last Admin: 08/14/18 21:50 Dose: 1 puff Sitagliptin Phosphate (Januvia) 100 mg PO [facility] Last Admin: 08/15/18 07:27 Dose: Not Given Tramadol HCl (Ultram) 50 mg PO Q4 PRN PRN Reason: Pain, severe (8-10) Last Admin: 08/15/18 07:39 Dose: 50 mg - Labs Labs: 08/15/18 04:35 08/15/18 04:35 - Extremities Exam Additional comments: +DP/PT pulses LLE, calves soft NT neg homans +ROM ankle/toes, no swelling or rash noted to face/chest/abd/extremities, sensation intact Assessment and Plan (1) Primary osteoarthritis of right hip Assessment & Plan: POD#1 s/p right THR -PT/OT -d/c planning -VTE proph -d/w Dr. Conklin, agrees with above Status: Acute (2) HTN (hypertension) Status: Chronic (3) Diabetes mellitus Status: Chronic (4) Asthma Status: Chronic
[2018-08-15] MEDS: Fluticasone-Salmeterol 250-50mcg Diskus INH SCH (08:53)
[2018-08-15] MEDS ORDERED: Enoxaparin 40 mg Syringe SC SCH (09:00)
--- NOTE | 2018-08-15 11:02 | CP.PCM.DIS ---
<Ingrid Dickerson - Last Filed: 08/15/18 12:33> Provider - Provider Date of Admission: 08/14/18 12:54 Attending physician: Harvey Herrera Primary care physician: PMD: Dejan Jonas MD Consults: 08/14/18 07:52 Orthopedic Consult Routine Comment: Consulting Provider: Tariq Conklin III Consulting Physician: Tariq Conklin III Reason for Consult: Right hip Osteoarthritis 08/14/18 12:54 Case Management Referral Routine Comment: Physician Instructions: Reason For Exam: Reason for Referral: Discharge Planning 08/14/18 14:08 Cardiology Consult Routine Comment: Consulting Provider: Nirail Ng Consulting Physician: Nirali Ng Reason for Consult: post op mgmt, s/p THR Time Spent in preparation of Discharge (in minutes): 30 Hospital Course - Lab Results Lab Results: Most Recent Lab Values WBC 8.2 K/uL (4.8-10.8) 08/15/18 04:35 RBC 3.88 Mil/uL (3.80-5.20) 08/15/18 04:35 Hgb 10.1 g/dL (12.0-16.0) L D 08/15/18 04:35 Hct 31.5 % (34.0-47.0) L 08/15/18 04:35 MCV 81.0 fl (81.0-99.0) 08/15/18 04:35 MCH 26.0 pg (27.0-31.0) L 08/15/18 04:35 MCHC 32.1 g/dL (33.0-37.0) L 08/15/18 04:35 RDW 16.8 % (11.5-14.5) H 08/15/18 04:35 Plt Count 138 K/uL (130-400) D 08/15/18 04:35 MPV 8.7 fl (7.2-11.7) 08/14/18 07:00 Neut % (Auto) 67.6 % (50.0-75.0) 08/14/18 07:00 Lymph % (Auto) 19.8 % (20.0-40.0) L 08/14/18 07:00 [place] % (Auto) 8.3 % (0.0-10.0) 08/14/18 07:00 Eos % (Auto) 3.7 % (0.0-4.0) 08/14/18 07:00 Baso % (Auto) 0.6 % (0.0-2.0) 08/14/18 07:00 Neut # (Auto) 4.9 K/uL (1.8-7.0) 08/14/18 07:00 Lymph # (Auto) 1.4 K/uL (1.0-4.3) 08/14/18 07:00 [place] # (Auto) 0.6 K/uL (0.0-0.8) 08/14/18 07:00 Eos # (Auto) 0.3 K/uL (0.0-0.7) 08/14/18 07:00 Baso # (Auto) 0.0 K/uL (0.0-0.2) 08/14/18 07:00 Sodium 136 mmol/l (132-148) 08/15/18 04:35 Potassium 3.5 MMOL/L (3.6-5.0) L 08/15/18 04:35 Chloride 98 mmol/L (98-107) 08/15/18 04:35 Carbon Dioxide 26 mmol/L (22-30) 08/15/18 04:35 Anion Gap 16 (10-20) 08/15/18 04:35 BUN 11 mg/dl (7-17) 08/15/18 04:35 Creatinine 0.5 mg/dl (0.7-1.2) L 08/15/18 04:35 Est GFR ( Amer) > 60 08/15/18 04:35 Est GFR (Non-Af Amer) > 60 08/15/18 04:35 POC Glucose (mg/dL) 154 mg/dL (65-110) H 08/15/18 05:05 Random Glucose 163 mg/dL (65-105) H 08/15/18 04:35 Calcium 8.0 mg/dL (8.4-10.2) L 08/15/18 04:35 Blood Type O POSITIVE 08/14/18 07:00 Blood Type Confirm O POSITIVE 08/14/18 08:04 Antibody Screen Negative 08/14/18 07:00 Crossmatch See Detail 08/14/18 07:00 BBK History Checked No verified bt 08/14/18 07:00 - Hospital Course Hospital Course: 63 year old female patient, with PMHx of DM, Asthma, OA, admitted for right hip OA. During her hospital course, patient underwent right total hip replacement with Dr. Conklin. After surgical procedure, patient's family reported patient to have previous history involving anaphylactic reaction "to medication with codine", allergy was not reported prior to procedure. No acute allergic reaction was noted during surgery with vital signs and peak airway pressures within normal limits. Given the newly reported allergy history, patient was treated empirically for acute allergic reaction with corticosteroids, antihistamines, and benadryll. Patient was transfered to ICU for overnight observation; no acute events overnight were appreciated. On day of discharge, patient successfully completed swallow test with no complications, no complaints of SOB, difficulty breathing or chest pains appreciated, patient stable for discharge to TCU for rehab per physical therapy recommendations. - Date & Time of H&P Date of H&P: 08/15/18 Time of H&P: 11:15 Discharge Exam - Head Exam Head Exam: NORMAL INSPECTION - Eye Exam Eye Exam: Normal appearance Pupil Exam: NORMAL ACCOMODATION - Respiratory Exam Respiratory Exam: NORMAL BREATHING PATTERN - Cardiovascular Exam Cardiovascular Exam: REGULAR RHYTHM - GI/Abdominal Exam GI & Abdominal Exam: Normal Bowel Sounds, Soft - Neurological Exam Neurological exam: Alert, Oriented x3 - Psychiatric Exam Psychiatric exam: Normal Affect, Normal Mood Discharge Plan - Follow Up Plan Condition: GOOD Disposition: REHAB FACILITY/REHAB UNIT Instructions: Asthma (DC), Hypertension (DC), Hypertension (GEN) <Felecia Spangler - Last Filed: 08/15/18 16:29> Provider - Provider Date of Admission: 08/14/18 12:54 Attending physician: Harvey Herrera Consults: 08/14/18 07:52 Orthopedic Consult Routine Comment: Consulting Provider: Tariq Conklin III Consulting Physician: Tariq Conklin III Reason for Consult: Right hip Osteoarthritis 08/14/18 12:54 Case Management Referral Routine Comment: Physician Instructions: Reason For Exam: Reason for Referral: Discharge Planning 08/14/18 14:08 Cardiology Consult Routine Comment: Consulting Provider: Nirali Ng Consulting Physician: Nirali Ng Reason for Consult: post op mgmt, s/p THR Hospital Course - Lab Results Lab Results: Most Recent Lab Values WBC 8.2 K/uL (4.8-10.8) 08/15/18 04:35 RBC 3.88 Mil/uL (3.80-5.20) 08/15/18 04:35 Hgb 10.1 g/dL (12.0-16.0) L D 08/15/18 04:35 Hct 31.5 % (34.0-47.0) L 08/15/18 04:35 MCV 81.0 fl (81.0-99.0) 08/15/18 04:35 MCH 26.0 pg (27.0-31.0) L 08/15/18 04:35 MCHC 32.1 g/dL (33.0-37.0) L 08/15/18 04:35 RDW 16.8 % (11.5-14.5) H 08/15/18 04:35 Plt Count 138 K/uL (130-400) D 08/15/18 04:35 MPV 8.7 fl (7.2-11.7) 08/14/18 07:00 Neut % (Auto) 67.6 % (50.0-75.0) 08/14/18 07:00 Lymph % (Auto) 19.8 % (20.0-40.0) L 08/14/18 07:00 [place] % (Auto) 8.3 % (0.0-10.0) 08/14/18 07:00 Eos % (Auto) 3.7 % (0.0-4.0) 08/14/18 07:00 Baso % (Auto) 0.6 % (0.0-2.0) 08/14/18 07:00 Neut # (Auto) 4.9 K/uL (1.8-7.0) 08/14/18 07:00 Lymph # (Auto) 1.4 K/uL (1.0-4.3) 08/14/18 07:00 [place] # (Auto) 0.6 K/uL (0.0-0.8) 08/14/18 07:00 Eos # (Auto) 0.3 K/uL (0.0-0.7) 08/14/18 07:00 Baso # (Auto) 0.0 K/uL (0.0-0.2) 08/14/18 07:00 Sodium 136 mmol/l (132-148) 08/15/18 04:35 Potassium 3.5 MMOL/L (3.6-5.0) L 08/15/18 04:35 Chloride 98 mmol/L (98-107) 08/15/18 04:35 Carbon Dioxide 26 mmol/L (22-30) 08/15/18 04:35 Anion Gap 16 (10-20) 08/15/18 04:35 BUN 11 mg/dl (7-17) 08/15/18 04:35 Creatinine 0.5 mg/dl (0.7-1.2) L 08/15/18 04:35 Est GFR ( Amer) > 60 08/15/18 04:35 Est GFR (Non-Af Amer) > 60 08/15/18 04:35 POC Glucose (mg/dL) 178 mg/dL (65-110) H 08/15/18 16:00 Random Glucose 163 mg/dL (65-105) H 08/15/18 04:35 Calcium 8.0 mg/dL (8.4-10.2) L 08/15/18 04:35 25-OH Vitamin D Total 44.5 NG/ML (30.0-100.0) 08/15/18 04:35 Blood Type O POSITIVE 08/14/18 07:00 Blood Type Confirm O POSITIVE 08/14/18 08:04 Antibody Screen Negative 08/14/18 07:00 Crossmatch See Detail 08/14/18 07:00 BBK History Checked No verified bt 08/14/18 07:00 Attending/Attestation - Attestation I have personally seen and examined this patient.: Yes I have fully participated in the care of the patient.: Yes I have reviewed all pertinent clinical information, including history, physical exam and plan: Yes Notes (Text): Primary OA , Right Hip s/p Right THR DM Type II with Hyperglycemia Asthma, mild intermittent Allergic Reaction Mild Post op acute blood loss anemia - Pain mgt -PT/OT consulted- rec TCU - will d/c pt to TCU for further Rehab -Incentive spirometry - DVT proph with Lovenox - Pt received IV steroids and Benadryl -cont home DM meds
[2018-08-15 12:21] VITALS: TEMP 98.2
[2018-08-15] MEDS ORDERED: Potassium Chloride 20 mEq ER Tab PO ONE (12:40)
[2018-08-15 15:46] VITALS: BP 105/48; PULSE 93; RESP 21; O2SAT 100
--- NOTE | 2018-08-15 15:49 | PQF ---
PROVIDER RESPONSE TEXT: Mild Intermittent Asthma REVIEWER QUERY TEXT: Asthma Specificity and Type 2 (two) queries as follows: A. Asthma is documented in the Medical Record. Please specify if the Astham is Stable or in exacerba tion etc-----.and B. . the Type Such as: -- Mild intermittent -- Mild persistent -- Moderate persistent -- Severe persistent -- Other, please specify H and P: includes:Respiratory: Exam: Clear to Auscultation Bilateral. absent: Rales, Rhonchi Asthma - Singular - PRN Albuterol The patient's Clinical Indicators include: --- Query created by: Mary Wiseman on 08/15/2018 9:12 AM Electronically signed by: Felecia Spangler MD 08/15/2018 3:45 PM
--- NOTE | 2018-08-15 15:49 | PQF ---
PROVIDER RESPONSE TEXT: DM type II with Hyperglycemia REVIEWER QUERY TEXT: Diabetic Associated Manifestations Please specify any manifestations associated / due to diabetes Such as: --Diabetes with Hyperglycemia -- Diabetes with renal manifestation -- Diabetes with neurologic manifestation -- Diabetes with ophthalmic manifestation -- Diabetes with peripheral circulatory manifestation -- Other, please specify Random glucose: 163 POC: 141->208->214->220->154 H and P: DM II - Lispro sliding scale according to accucheck - restart Januvia post surgery - Restart Glucophage post surgery if no contrast dye used RD consult pending The patient's Clinical Indicators include: --- Query created by: Mary Wiseman on 08/15/2018 1:27 PM Electronically signed by: Felecia Spangler MD 08/15/2018 3:45 PM
[2018-08-15] MEDS ORDERED: Sodium Chloride 0.9% 1,000 ML IV SCH (16:30)
[2018-08-15] MEDS ORDERED: Famotidine 40 MG/5 ML PO SCH (17:00)
--- NOTE | 2018-08-15 22:21 | PN ---
DATE: 08/15/2018 CRITICAL CARE PROGRESS NOTE LOCATION: The patient in ICU, bed 432. TIME SPENT: 35 minutes. SUBJECTIVE: The patient is seen, evaluated at the bedside. Past medical, surgical, family and social history reviewed. A 63-year-old female, history significant for diabetes, asthma, osteoarthritis of the right hip, right hip pain since 2014 and becoming worse. The patient is status post right hip replacement, postop day 1. Overnight, noted to have itching, treated with antihistamine and steroid. This morning, alert and awake, follows commands, appropriate. Complaining of ongoing itching and rash, lower abdominal wall. No sore throat. No dysphagia. No wheezing. No cough. PHYSICAL EXAMINATION: VITAL SIGNS: Temperature 98.2, heart rate of 76, blood pressure 97/42, mean arterial pressure was 60, oxygen saturation 99%, on oxygen supplement 2 liters nasal cannula. Intake 4255, output 1575, positive balance 2680 HEAD, EYES, EARS, NOSE AND THROAT: Pupils reactive. Conjunctivae pink. Sclerae white. NECK: Supple. Trachea central. CHEST: Bilateral breath sounds. Clear to auscultation. HEART: Rhythm regular. S1, S2 normal intensity. No S3, S4 gallop. No audible murmur. ABDOMEN: Bowel sounds present. Soft. Liver and spleen not palpable. Bladder not distended. EXTREMITIES: No clubbing or cyanosis. Capillary refill less than 2 seconds. No palpable cord. Dressing intact. No soiling noted. LABORATORY DATA: WBC 8.2, hemoglobin 10.1, hematocrit 31.5, platelet count of 138. SMA-7: Sodium 130, potassium 3.5, chloride 98, CO2 of 26, blood urea nitrogen 11, creatinine 0.5, random glucose 163, calcium 8. CURRENT MEDICATIONS: Tylenol 650 every 6 hours p.r.n., albuterol inhaler 1 puff every 6 hours p.r.n., Xanax 1 mg p.o. three times daily, artificial tears 2 drops OU every 4 hours, aspirin 81 mg daily, Lipitor 40 mg p.o. at bedtime, Dulcolax 10 mg p.o. bedtime p.r.n., Os-Trino 500 mg three times daily, Benadryl 25 mg IV every 6 hours p.r.n., Colace 100 mg p.o. twice daily, Cymbalta 60 mg p.o. at bedtime, Lovenox 40 subcu daily, hydrochlorothiazide 25 mg p.o. daily, hydrocortisone cream 1% one application topically twice daily, Accu-Chek with regular insulin coverage course of 100 mg p.o. daily, Namenda 20 mg p.o. at bedtime, metformin 1000 mg twice daily, Singulair 10 mg daily, Zofran formula IV every 6 hours p.r.n., Advair Diskus 1 puff every 12 hours, Ultram 50 mg p.o. every 4 hours p.r.n. IMPRESSION: 1. Postoperative day 1, status post right hip arthroplasty. Operative course uneventful. Postoperative course, noted to have itching and rash, likely medication allergy, treated with steroid and Benadryl, improving. 2. Neurologic: History of Alzheimer's dementia, on Namenda. 3. Cardiac: History of hypertension, on Cozaar 100 mg, on hold secondary to borderline blood pressure. We will resume once the blood pressure is noted to be above 113. 4. History of anxiety, on Xanax. 5. Pulmonary: Chronic asthma, on albuterol and Advair. Continue same. 6. Gastrointestinal: No acute issues noted. Acute drop in hemoglobin secondary to blood loss, status post right hip arthroplasty. 7. Mild thrombocytopenia. Closely monitor. Continue deep venous thrombosis prophylaxis. Agree with transfer out of Intensive Care Unit. David Pinedo MD
[2018-08-15] MEDS ORDERED: Hydrocortisone- 100 MG in Sodium Chloride 0.9% 100 ML IV ONE (22:34)
--- NOTE | 2018-08-18 14:40 | RAD ---
Date of service: 08/14/2018 PROCEDURE: Fluoroscopy up to 1 hr. HISTORY: COMPARISON: None TECHNIQUE: Standard protocol for this study/examination. FINDINGS: Total fluoroscopic time (continuous mode) utilized during the procedure 16.8 seconds. IMPRESSION: Less than 1 hr fluoroscopic assistance provided during performance of the procedure.
== END 2018-08-15 16:00 | DRG 470 ==
LOC: H.OPSURG 06:05 → H.ICU/CCU 12:54
PROVIDERS: ADMIT Internal Medicine; ATTEND Internal Medicine
PROC: 8E0WXBZ Computer Assisted Procedure of Trunk Region (ICD-10-PCS; 2018-08-14)
PROC: 30233N1 Transfusion of Nonautologous Red Blood Cells into Peripheral Vein, Percutaneous Approach (ICD-10-PCS; 2018-08-14)
PROC: 0SR904Z Replacement of Right Hip Joint with Ceramic on Polyethylene Synthetic Substitute, Open Approach (ICD-10-PCS; principal; 2018-08-14 07:45)
DX: M16.11 Unilateral primary osteoarthritis, right hip (principal); D62 Acute posthemorrhagic anemia; D69.6 Thrombocytopenia, unspecified; M65.851 Other synovitis and tenosynovitis, right thigh; E11.65 Type 2 diabetes mellitus with hyperglycemia; J45.20 Mild intermittent asthma, uncomplicated; L27.0 Generalized skin eruption due to drugs and medicaments taken internally; F02.80 Dementia in other diseases classified elsewhere, unspecified severity, without behavioral disturbance, psychotic disturbance, mood disturbance, and anxiety; G30.9 Alzheimer's disease, unspecified; Z96.652 Presence of left artificial knee joint; I10 Essential (primary) hypertension; E78.5 Hyperlipidemia, unspecified; E78.00 Pure hypercholesterolemia, unspecified; F41.9 Anxiety disorder, unspecified; Z88.0 Allergy status to penicillin; Z88.6 Allergy status to analgesic agent; Z91.040 Latex allergy status

== ENCOUNTER 2018-08-15 14:45 | Inpatient (IN) | payer BC ==
[2018-08-15 16:50] VITALS: BMI 27.3
[2018-08-15] MEDS ORDERED: Albuterol HFA 90 mcg/actuation (8 g) INH PRN (16:58)
[2018-08-15] MEDS ORDERED: Fluticasone-Salmeterol 250-50mcg Diskus INH SCH (21:00)
[2018-08-15] MEDS: Fluticasone-Salmeterol 250-50mcg Diskus INH SCH (21:28)
[2018-08-16] MEDS: Fluticasone-Salmeterol 250-50mcg Diskus INH SCH ×2 (09:07→21:17)
[2018-08-16] MEDS: Enoxaparin 40 mg Syringe SC SCH (09:08)
[2018-08-16] MEDS: Pantoprazole 40 mg EC Tab PO SCH (09:28)
--- NOTE | 2018-08-16 10:09 | CP.PCM.PN ---
Subjective - Date & Time of Evaluation Date of Evaluation: 08/16/18 Time of Evaluation: 09:30 - Subjective Subjective: S- pt with minimal post op discomfort; encouinter accomplished at [facility] Objective - Vital Signs/Intake and Output Vital Signs (last 24 hours): Temp Pulse Resp BP Pulse Ox 99.1 F 79 20 103/65 96 08/15/18 21:25 08/15/18 21:25 08/15/18 21:25 08/15/18 21:25 08/15/18 21:25 - Medications Medications: Current Medications Albuterol (Ventolin Hfa 90 Mcg/Actuation (8 G)) puff INH ASDIR PRN PRN Reason: Shortness of Breath Alprazolam (Xanax) 1 mg PO Q8 PRN PRN Reason: Anxiety Last Admin: 08/16/18 00:23 Dose: 1 mg Atorvastatin Calcium (Lipitor) 40 mg PO HS [facility] Last Admin: 08/15/18 21:28 Dose: 40 mg Calcium Carbonate (Oscal) 1 mg PO ASDIR [facility] Docusate Sodium (Colace) 100 mg PO BID [facility] Last Admin: 08/16/18 09:08 Dose: 100 mg Duloxetine HCl (Cymbalta) 60 mg PO HS [facility] Last Admin: 08/15/18 21:29 Dose: 60 mg Enoxaparin Sodium (Lovenox) 40 mg SC DAILY [facility]; Protocol Last Admin: 08/16/18 09:08 Dose: 40 mg Ferrous Sulfate (Feosol) 325 mg PO BID [facility] Last Admin: 08/16/18 09:28 Dose: 325 mg Hydrocortisone (Cortizone 1% Cream) 1 applic TOP BID [facility] Last Admin: 08/16/18 09:08 Dose: 1 applic Memantine (Namenda) 20 mg PO HS [facility] Last Admin: 08/15/18 21:29 Dose: 20 mg Metformin HCl (Glucophage) 1,000 mg PO BID [facility] Last Admin: 08/16/18 09:09 Dose: 1,000 mg Montelukast Sodium (Singulair) 10 mg PO DAILY [facility] Last Admin: 08/16/18 09:10 Dose: 10 mg Pantoprazole Sodium (Protonix Ec Tab) 40 mg PO DAILY [facility] Last Admin: 08/16/18 09:28 Dose: 40 mg Fluticasone/Salmeterol (Advair Diskus 250/50) 1 puff INH Q12 [facility] Last Admin: 08/16/18 09:07 Dose: 1 puff Sitagliptin Phosphate (Januvia) 100 mg PO HS [facility] Tramadol HCl (Ultram) 50 mg PO Q4 PRN PRN Reason: Pain, moderate (4-7) Tramadol HCl (Ultram) 100 mg PO Q4 PRN PRN Reason: Pain, severe (8-10) Last Admin: 08/16/18 06:46 Dose: 100 mg - Skin Additional comments: Obj systemic wnl MUSCULOSKEKLTAL STANCE/GAIT- DEFRRED R hip wpound beign N/V intact no gross deficits post op xray- reveals excellent position of construct Assessment and Plan - Assessment and Plan (Free Text) Assessment: A- s/p THR R P- full weight6 bearing /orthopedically stable
--- NOTE | 2018-08-16 14:09 | CP.PCM.HP ---
<Sultan Precious - Last Filed: 08/16/18 14:21> History of Present Illness - History of Present Illness History of Present Illness: 63 year old female patient, with PMHx of DM, Asthma, OA, s/p right THR on 08/14/18 admitted to TCU physical therapy and rehabilitation. Patient underwent right total hip replacement with Dr. Conklin on 08/14/18. After surgical procedure, patient's family reported patient to have previous history involving anaphylactic reaction "to medication with codine", allergy was not reported prior to procedure. No acute allergic reaction was noted during surgery with vital signs and peak airway pressures within normal limits. Given the newly reported allergy history, patient was treated empirically for acute allergic reaction with corticosteroids, antihistamines, and benadryll. Patient was transfered to ICU for overnight observation; no acute events overnight were ap preacited and discharged to TCU yesterday. This morning patient seen and examined. Patient reports she has pain in the surgical area and pain is controlled with pain medication. Denies any chest kaitlyn n, dyspnea, nausea, vomiting, fever or chills. ROS: all 12 systems reviewed and negative except as mentioned in HPI PMH: HTN; DM II; Asthma; HLD; Depression and anxiety; Osteoarthritis of the right hip PSH: Left rotator cuff repair x2; Left TKR; Breast Reduction; Vein stripping lower extremities, right THR on 08/14/18 SH: Never smoked; No Alcohol use; No illegal frug use; Live with family FH: States: No known family hx Allergies: PCN; Codeine; Latex Medication: Reviewed Present on Admission - Present on Admission Any Indicators Present on Admission: No Review of Systems - Review of Systems All systems: reviewed and no additional remarkable complaints except Past Patient History - Past Medical History & Family History Past Medical History?: Yes - Past Social History Smoking Status: Never Smoked - CARDIAC Hx Angina: Yes Hx Hypercholesterolemia: Yes Hx Hypertension: Yes - PULMONARY Hx Respiratory Disorders: Yes Hx Asthma: Yes - NEUROLOGICAL Hx Neurological Disorder: No - HEENT Hx HEENT Problems: No - RENAL Hx Chronic Kidney Disease: No - ENDOCRINE/METABOLIC Hx Endocrine Disorders: Yes Hx Diabetes Mellitus Type 2: Yes - HEMATOLOGICAL/ONCOLOGICAL Hx Blood Disorders: No Hx AIDS: No Hx Human Immunodeficiency Virus (HIV): No - INTEGUMENTARY Hx Dermatological Problems: No - MUSCULOSKELETAL/RHEUMATOLOGICAL Hx Musculoskeletal Disorders: Yes Hx Arthritis: Yes Hx Falls: No Hx Osteoarthritis: Yes - GASTROINTESTINAL Hx Gastrointestinal Disorders: No - GENITOURINARY/GYNECOLOGICAL Hx Genitourinary Disorders: No - PSYCHIATRIC Hx Psychophysiologic Disorder: Yes Hx Anxiety: Yes Hx Depression: Yes Hx Substance Use: No - SURGICAL HISTORY Hx Surgeries: Yes Hx Joint Replacement: Yes (LTKR) Other/Comment: BREAST REDUCTION. Both legs vein stripping. s/p right total hip replacement 08/14/18 - ANESTHESIA Hx Anesthesia Reactions: Yes (x1 tachycardia w nausea) Meds Allergies/Adverse Reactions: Allergies Allergy/AdvReac Type Severity Reaction Status Date / Time codeine Allergy ANAPHYLAXIS Verified 08/15/18 16:43 latex Allergy ITCHING Verified 08/15/18 16:43 oxycodone Allergy RASH Verified 08/16/18 09:11 Penicillins Allergy RASH Verified 08/15/18 16:43 Physical Exam - Constitutional Appears: No Acute Distress Additional comments: Sitting comfortably in a chair - Head Exam Head Exam: NORMAL INSPECTION - Eye Exam Eye Exam: Normal appearance - ENT Exam ENT Exam: Mucous Membranes Moist - Respiratory Exam Respiratory Exam: Clear to Auscultation Bilateral, NORMAL BREATHING PATTERN. absent: Rhonchi, Wheezes - Cardiovascular Exam Cardiovascular Exam: REGULAR RHYTHM, +S1, +S2 - GI/Abdominal Exam GI & Abdominal Exam: Normal Bowel Sounds, Soft. absent: Tenderness - Extremities Exam Extremities exam: Negative for: calf tenderness, pedal edema - Neurological Exam Neurological exam: Alert, Oriented x3 - Psychiatric Exam Psychiatric exam: Normal Affect, Normal Mood - Skin Skin Exam: Normal Color Results - Vital Signs Recent Vital Signs: Last Vital Signs Temp 98.7 F 08/16/18 10:08 Pulse 82 08/16/18 10:09 Resp 20 08/16/18 10:08 BP 102/65 08/16/18 10:08 Pulse Ox 98 08/16/18 10:09 - Labs Labs: Laboratory Results - last 24 hr 08/15/18 08/16/18 08/16/18 21:48 05:33 11:13 POC Glucose (mg/dL) 247 H 166 H 229 H Assessment & Plan - Assessment and Plan (Free Text) Assessment: 63 year old female patient, with PMHx of DM, Asthma, OA, s/p right THR on 08/14/18 admitted to TCU physical therapy and rehabilitation. Plan: Osteoarthritis of the right hip s/p right THR on 08/14/18 -Orthopedist Dr. Kate on board - Pain management -c/w OT/PT DM II - c/w Metformin and Januvia -accucheck ACHS HTN - Stable w/o medication now -Hold Cozaar Asthma - Singular - PRN Albuterol HLD - lipitor Depression and Anxiety - xanax - Cymbalta DVT Prophylaxis -Lovenox 40 mg SC Peptic ulcer prophylaxis -Pantoprazole 40 mg po daily Code status - Full Plan discussed with Dr. Love <Felecia Spangler - Last Filed: 08/16/18 17:36> Results - Vital Signs Recent Vital Signs: Last Vital Signs Temp 98.1 F 08/16/18 15:46 Pulse 79 08/16/18 15:46 Resp 20 08/16/18 15:46 BP 99/63 L 08/16/18 15:46 Pulse Ox 96 08/16/18 15:46 - Labs Labs: Laboratory Results - last 24 hr 08/15/18 08/16/18 08/16/18 21:48 05:33 11:13 POC Glucose (mg/dL) 247 H 166 H 229 H 08/16/18 16:38 POC Glucose (mg/dL) 167 H Attending/Attestation - Attestation I have personally seen and examined this patient.: Yes I have fully participated in the care of the patient.: Yes I have reviewed all pertinent clinical information: Yes Notes (Text): Primary OA , Right Hip s/p Right THR DM Type II with Hyperglycemia Asthma, mild intermittent Allergic Reaction to Morphine Mild Post op acute blood loss anemia - Pain mgt with Ultram - tolerating this med, also takes it at home -PT/OT , Physiatry consulted - Ortho consult -Incentive spirometry - DVT proph with Lovenox -cont home DM meds
[2018-08-16] MEDS: Sodium Chloride 0.9% 1,000 ML IV SCH (18:14)
[2018-08-17] MEDS: Sodium Chloride 0.9% 1,000 ML IV SCH (06:47)
[2018-08-17] MEDS: Fluticasone-Salmeterol 250-50mcg Diskus INH SCH ×2 (08:31→21:39)
[2018-08-17] MEDS: Enoxaparin 40 mg Syringe SC SCH (08:32)
[2018-08-17] MEDS: Pantoprazole 40 mg EC Tab PO SCH (08:34)
--- NOTE | 2018-08-17 10:27 | CP.PCM.CON ---
History of Present Illness - History of Present Illness History of Present Illness: 63 year admitted to TCU with right hip replacement,with history of OA, DM, Asthma admitted for inpatient rehab Review of Systems - Musculoskeletal Musculoskeletal: Muscle Weakness Past Patient History - Past Medical History & Family History Past Medical History?: Yes - Past Social History Smoking Status: Never Smoked - CARDIAC Hx Angina: Yes Hx Hypercholesterolemia: Yes Hx Hypertension: Yes - PULMONARY Hx Respiratory Disorders: Yes Hx Asthma: Yes - NEUROLOGICAL Hx Neurological Disorder: No - HEENT Hx HEENT Problems: No - RENAL Hx Chronic Kidney Disease: No - ENDOCRINE/METABOLIC Hx Endocrine Disorders: Yes Hx Diabetes Mellitus Type 2: Yes - HEMATOLOGICAL/ONCOLOGICAL Hx Blood Disorders: No Hx AIDS: No Hx Human Immunodeficiency Virus (HIV): No - INTEGUMENTARY Hx Dermatological Problems: No - MUSCULOSKELETAL/RHEUMATOLOGICAL Hx Musculoskeletal Disorders: Yes Hx Arthritis: Yes Hx Falls: No Hx Osteoarthritis: Yes - GASTROINTESTINAL Hx Gastrointestinal Disorders: No - GENITOURINARY/GYNECOLOGICAL Hx Genitourinary Disorders: No - PSYCHIATRIC Hx Psychophysiologic Disorder: Yes Hx Anxiety: Yes Hx Depression: Yes Hx Substance Use: No - SURGICAL HISTORY Hx Surgeries: Yes Hx Joint Replacement: Yes (LTKR) Other/Comment: BREAST REDUCTION. Both legs vein stripping. s/p right total hip replacement 08/14/18 - ANESTHESIA Hx Anesthesia Reactions: Yes (x1 tachycardia w nausea) Meds Allergies/Adverse Reactions: Allergies Allergy/AdvReac Type Severity Reaction Status Date / Time codeine Allergy ANAPHYLAXIS Verified 08/15/18 16:43 latex Allergy ITCHING Verified 08/15/18 16:43 oxycodone Allergy RASH Verified 08/16/18 09:11 Penicillins Allergy RASH Verified 08/15/18 16:43 - Medications Medications: Current Medications Albuterol (Ventolin Hfa 90 Mcg/Actuation (8 G)) 1 puff INH RQID PRN PRN Reason: Shortness of Breath Alprazolam (Xanax) 1 mg PO Q8 PRN PRN Reason: Anxiety Last Admin: 08/17/18 08:46 Dose: 1 mg Atorvastatin Calcium (Lipitor) 40 mg PO HS [facility] Last Admin: 08/16/18 21:17 Dose: 40 mg Calcium Carbonate (Oscal) 500 mg PO DAILY [facility] Last Admin: 08/17/18 08:34 Dose: 500 mg Docusate Sodium (Colace) 100 mg PO BID [facility] Last Admin: 08/17/18 08:33 Dose: 100 mg Duloxetine HCl (Cymbalta) 60 mg PO [facility] Last Admin: 08/16/18 21:17 Dose: 60 mg Enoxaparin Sodium (Lovenox) 40 mg SC DAILY [facility]; Protocol Last Admin: 08/17/18 08:32 Dose: 40 mg Ferrous Sulfate (Feosol) 325 mg PO BID [facility] Last Admin: 08/17/18 08:41 Dose: 325 mg Hydrocortisone (Cortizone 1% Cream) 1 applic TOP BID [facility] Last Admin: 08/17/18 08:31 Dose: 1 applic Sodium Chloride (Sodium Chloride 0.9%) 1,000 mls @ 80 mls/hr IV .[id number] [facility] Stop: 08/17/18 17:33 Last Admin: 08/17/18 06:47 Dose: 80 mls/hr Memantine (Namenda) 20 mg PO [facility] Last Admin: 08/16/18 21:17 Dose: 20 mg Metformin HCl (Glucophage) 1,000 mg PO BID [facility] Last Admin: 08/17/18 08:34 Dose: 1,000 mg Montelukast Sodium (Singulair) 10 mg PO DAILY [facility] Last Admin: 08/17/18 08:33 Dose: 10 mg Pantoprazole Sodium (Protonix Ec Tab) 40 mg PO DAILY [facility] Last Admin: 08/17/18 08:34 Dose: 40 mg Fluticasone/Salmeterol (Advair Diskus 250/50) 1 puff INH Q12 [facility] Last Admin: 08/17/18 08:31 Dose: 1 puff Sitagliptin Phosphate (Januvia) 100 mg PO [facility] Last Admin: 08/16/18 21:17 Dose: 100 mg Tramadol HCl (Ultram) 50 mg PO Q4 PRN PRN Reason: Pain, moderate (4-7) Tramadol HCl (Ultram) 100 mg PO Q4 PRN PRN Reason: Pain, severe (8-10) Last Admin: 08/17/18 08:32 Dose: 100 mg Physical Exam - Constitutional Appears: Well - Head Exam Head Exam: ATRAUMATIC, NORMAL INSPECTION, NORMOCEPHALIC - Eye Exam Eye Exam: EOMI, Normal appearance Pupil Exam: NORMAL ACCOMODATION, PERRL - ENT Exam ENT Exam: Mucous Membranes Moist, Normal Exam - Neck Exam Neck exam: Positive for: Normal Inspection - Respiratory Exam Respiratory Exam: Clear to Auscultation Bilateral, NORMAL BREATHING PATTERN - Cardiovascular Exam Cardiovascular Exam: REGULAR RHYTHM - GI/Abdominal Exam GI & Abdominal Exam: Normal Bowel Sounds - Rectal Exam Rectal Exam: NORMAL INSPECTION - Exam External exam: NORMAL EXTERNAL EXAM - Extremities Exam Extremities exam: Positive for: normal inspection Additional comments: right leg weakness - Back Exam Back exam: NORMAL INSPECTION - Neurological Exam Neurological exam: Alert, CN II-XII Intact - Psychiatric Exam Psychiatric exam: Normal Affect - Skin Skin Exam: Normal Color Results - Vital Signs Recent Vital Signs: Last Vital Signs Temp 98.8 F 08/17/18 10:21 Pulse 100 H 08/17/18 10:21 Resp 20 08/17/18 10:21 BP 103/69 08/17/18 10:21 Pulse Ox 80 L 08/17/18 10:21 - Labs Labs: Laboratory Results - last 24 hr 08/16/18 08/16/18 08/16/18 11:13 16:38 21:03 POC Glucose (mg/dL) 229 H 167 H 186 H 08/17/18 05:05 POC Glucose (mg/dL) 139 H Assessment & Plan (1) Primary osteoarthritis of right hip Assessment and Plan: Right hip replacement, plan for physical, occupational, therapy for range of motion, strengthening, transfers and gait training. Monitor hip incisional site, and pain meds , ultram. Later equipment prior to discharge home. Thank you for the referral. Status: Acute (2) Asthma Status: Chronic (3) Diabetes mellitus Status: Chronic (4) HTN (hypertension) Status: Chronic
[2018-08-18] MEDS: Enoxaparin 40 mg Syringe SC SCH (08:29)
[2018-08-18] MEDS: Fluticasone-Salmeterol 250-50mcg Diskus INH SCH ×2 (08:29→21:18)
[2018-08-18] MEDS: Pantoprazole 40 mg EC Tab PO SCH (08:29)
--- NOTE | 2018-08-18 08:43 | CP.PCM.PN ---
Subjective - Date & Time of Evaluation Date of Evaluation: 08/18/18 Time of Evaluation: 07:30 - Subjective Subjective: Patient seen and examined OOB to chair comfortable. Pain well controlled. No acute events over weekend. Tolerating PT well. Denies CP/SOB/fever/dizziness. Objective - Vital Signs/Intake and Output Vital Signs (last 24 hours): Temp Pulse Resp BP Pulse Ox 98.7 F 84 20 96/59 L 98 08/18/18 07:59 08/18/18 07:59 08/18/18 07:59 08/18/18 07:59 08/18/18 07:59 - Medications Medications: Current Medications Albuterol (Ventolin Hfa 90 Mcg/Actuation (8 G)) 1 puff INH RQID PRN PRN Reason: Shortness of Breath Alprazolam (Xanax) 1 mg PO Q8 PRN PRN Reason: Anxiety Last Admin: 08/17/18 08:46 Dose: 1 mg Atorvastatin Calcium (Lipitor) 40 mg PO [facility] Last Admin: 08/17/18 21:48 Dose: 40 mg Calcium Carbonate (Oscal) 500 mg PO DAILY [facility] Last Admin: 08/18/18 08:30 Dose: 500 mg Docusate Sodium (Colace) 100 mg PO BID [facility] Last Admin: 08/18/18 08:29 Dose: 100 mg Duloxetine HCl (Cymbalta) 60 mg PO [facility] Last Admin: 08/17/18 21:48 Dose: 60 mg Enoxaparin Sodium (Lovenox) 40 mg SC DAILY [facility]; Protocol Last Admin: 08/18/18 08:29 Dose: 40 mg Ferrous Sulfate (Feosol) 325 mg PO BID [facility] Last Admin: 08/18/18 08:38 Dose: 325 mg Hydrocortisone (Cortizone 1% Cream) 1 applic TOP BID [facility] Last Admin: 08/18/18 08:31 Dose: 1 applic Lactulose (Enulose) 20 gm PO Q12 PRN PRN Reason: Constipation Last Admin: 08/18/18 06:57 Dose: 20 gm Memantine (Namenda) 20 mg PO [facility] Last Admin: 08/17/18 21:48 Dose: 20 mg Metformin HCl (Glucophage) 1,000 mg PO BID [facility] Last Admin: 08/18/18 08:30 Dose: 1,000 mg Montelukast Sodium (Singulair) 10 mg PO DAILY [facility] Last Admin: 08/18/18 08:38 Dose: 10 mg Pantoprazole Sodium (Protonix Ec Tab) 40 mg PO DAILY [facility] Last Admin: 08/18/18 08:29 Dose: 40 mg Fluticasone/Salmeterol (Advair Diskus 250/50) 1 puff INH Q12 [facility] Last Admin: 08/18/18 08:29 Dose: 1 puff Sitagliptin Phosphate (Januvia) 100 mg PO HS [facility] Last Admin: 08/17/18 21:48 Dose: 100 mg Tramadol HCl (Ultram) 50 mg PO Q4 PRN PRN Reason: Pain, moderate (4-7) Tramadol HCl (Ultram) 100 mg PO Q4 PRN PRN Reason: Pain, severe (8-10) Last Admin: 08/18/18 08:27 Dose: 100 mg - Extremities Exam Additional comments: R hip: Dressings CDI Incision CDI with richard, portal sites CDI with nylon sutures mild to moderate thigh swelling 2nd to surgery sensation intact SP/DP/TN motor intact EHL/FHL/TA/G pedal pulses intact calves soft NT b/l Assessment and Plan (1) Status post total hip replacement, right Assessment & Plan: POD #4 S/P R FLAQUITA -PT/OT FWB RLE -DVT ppx -Dressings changed -orthopedically stable -above d/w Dr. Conklin in agreement Status: Acute
[2018-08-19] MEDS: Enoxaparin 40 mg Syringe SC SCH (08:36)
[2018-08-19] MEDS: Fluticasone-Salmeterol 250-50mcg Diskus INH SCH ×2 (08:37→21:54)
[2018-08-19] MEDS: Pantoprazole 40 mg EC Tab PO SCH (08:38)
--- NOTE | 2018-08-19 09:49 | CP.PCM.PN ---
Subjective - Date & Time of Evaluation Date of Evaluation: 08/19/18 Time of Evaluation: 10:00 - Subjective Subjective: Patient seen and examined bedside . Lying in bed in NAD. Complains of pain to her right hip , burning in nature , pain to her shoulders and wrists. No acute issues overnight . Participating with PT Appears slightly sleepy during the interview Objective - Vital Signs/Intake and Output Vital Signs (last 24 hours): Temp Pulse Resp BP Pulse Ox 99.5 F 85 20 99/60 L 96 08/19/18 07:38 08/19/18 07:38 08/19/18 07:38 08/19/18 07:38 08/19/18 07:38 - Medications Medications: Current Medications Albuterol (Ventolin Hfa 90 Mcg/Actuation (8 G)) 1 puff INH RQID PRN PRN Reason: Shortness of Breath Alprazolam (Xanax) 1 mg PO Q8@0600,1400,2200 [facility] Last Admin: 08/19/18 05:32 Dose: 1 mg Atorvastatin Calcium (Lipitor) 40 mg PO [facility] Last Admin: 08/18/18 21:18 Dose: 40 mg Calcium Carbonate (Oscal) 500 mg PO DAILY [facility] Last Admin: 08/19/18 08:38 Dose: 500 mg Docusate Sodium (Colace) 100 mg PO BID [facility] Last Admin: 08/19/18 08:38 Dose: 100 mg Duloxetine HCl (Cymbalta) 60 mg PO HS [facility] Last Admin: 08/18/18 21:25 Dose: 60 mg Enoxaparin Sodium (Lovenox) 40 mg SC DAILY [facility]; Protocol Last Admin: 08/19/18 08:36 Dose: 40 mg Ferrous Sulfate (Feosol) 325 mg PO BID [facility] Last Admin: 08/19/18 08:37 Dose: 325 mg Hydrocortisone (Cortizone 1% Cream) 1 applic TOP BID [facility] Last Admin: 08/19/18 08:39 Dose: Not Given Lactulose (Enulose) 20 gm PO Q12 PRN PRN Reason: Constipation Last Admin: 08/18/18 06:57 Dose: 20 gm Memantine (Namenda) 20 mg PO DAILY [facility] Last Admin: 08/19/18 09:35 Dose: 20 mg Metformin HCl (Glucophage) 1,000 mg PO BID [facility] Last Admin: 08/19/18 08:38 Dose: 1,000 mg Montelukast Sodium (Singulair) 10 mg PO DAILY [facility] Last Admin: 08/19/18 08:39 Dose: 10 mg Ondansetron HCl (Zofran Odt) 4 mg PO Q8H PRN PRN Reason: Nausea/Vomiting Pantoprazole Sodium (Protonix Ec Tab) 40 mg PO DAILY [facility] Last Admin: 08/19/18 08:38 Dose: 40 mg Fluticasone/Salmeterol (Advair Diskus 250/50) 1 puff INH Q12 [facility] Last Admin: 08/19/18 08:37 Dose: 1 puff Sitagliptin Phosphate (Januvia) 100 mg PO HS [facility] Last Admin: 08/18/18 21:18 Dose: 100 mg Tramadol HCl (Ultram) 50 mg PO Q4 PRN PRN Reason: Pain, moderate (4-7) Tramadol HCl (Ultram) 100 mg PO Q4 PRN PRN Reason: Pain, severe (8-10) Last Admin: 08/19/18 09:33 Dose: 100 mg - Constitutional Appears: Non-toxic, No Acute Distress - Head Exam Head Exam: ATRAUMATIC, NORMOCEPHALIC - Eye Exam Eye Exam: EOMI, PERRL Pupil Exam: NORMAL ACCOMODATION - ENT Exam ENT Exam: Mucous Membranes Moist, Normal Exam - Neck Exam Neck Exam: Full ROM, Normal Inspection - Respiratory Exam Respiratory Exam: Clear to Ausculation Bilateral, NORMAL BREATHING PATTERN. absent: Rhonchi, Wheezes, Respiratory Distress - Cardiovascular Exam Cardiovascular Exam: REGULAR RHYTHM, RRR, +S1, +S2. absent: JVD - GI/Abdominal Exam GI & Abdominal Exam: Soft, Normal Bowel Sounds. absent: Distended, Guarding, Rebound - Rectal Exam Rectal Exam: Deferred - Extremities Exam Extremities Exam: Normal Capillary Refill. absent: Calf Tenderness, Pedal Edema Additional comments: right hip surgical incision with dressing in place - Back Exam Back Exam: NORMAL INSPECTION - Neurological Exam Neurological Exam: Alert, Awake, CN II-XII Intact, Oriented x3 - Psychiatric Exam Psychiatric exam: Flat Affect - Skin Skin Exam: Dry, Warm Assessment and Plan - Assessment and Plan (Free Text) Assessment: 63 year old female patient, with PMHx of DM, Asthma, OA, s/p right THR on 08/14/18 admitted to TCU for physical therapy and rehabilitation. Participating with PT 1.Osteoarthritis of the right hip s/p right THR on 08/14/18 participating with PT Orthopedically stable Continue pain management surgical wound healing well with dressing on Lovenox for DVt prophylaxis Orthopedist Dr. Kate on board Check CBC , BMP 2.DM II controlled continue Metformin and Januvia accucheck ACHS, diabetic diet , insulin coverage 3.HTN on the lower side Hold Cozaar 4.Asthma stable on Singular and Advir PRN Albuterol 5. HLD on lipitor 6 Depression and Anxiety patient appears somewhat drowsy , sleepy Will decrease dose on Xanax and give PRN Decrease namenda from 20 to 10 mg daily . Continue Cymbalta 7.Dementia patient is on namenda that is dementia medication started from her PMD. Will decrease dose to 10 mg daily since she appears somewhat drowsy 8.DVT Prophylaxis on Lovenox 40 mg SC 9.Peptic ulcer prophylaxis Pantoprazole 40 mg po daily 10.Code status Full
[2018-08-20 06:27] LABS: HEMOGLOBIN 8.3 g/dL (12.0-16.0); MEAN CELL VOLUME 80.3 fl (81.0-99.0); MEAN CORPUSCULAR HEMOGLOBIN 26.4 pg (27.0-31.0); MEAN CORPUSCULAR HGB CONC 32.9 g/dL (33.0-37.0); RBC 3.16 Mil/uL (3.80-5.20); WHITE BLOOD COUNT 5.9 K/uL (4.8-10.8)
[2018-08-20 06:43] LABS: BLOOD UREA NITROGEN 7 mg/dl (7-17); CALCIUM 8.7 mg/dL (8.4-10.2); GFR NON-AFRICAN AMERICAN > 60
[2018-08-20] MEDS: Fluticasone-Salmeterol 250-50mcg Diskus INH SCH ×2 (08:18→21:47)
[2018-08-20] MEDS: Enoxaparin 40 mg Syringe SC SCH (08:19)
[2018-08-20] MEDS: Pantoprazole 40 mg EC Tab PO SCH (08:21)
--- NOTE | 2018-08-20 10:21 | CP.PCM.PN ---
Subjective - Date & Time of Evaluation Date of Evaluation: 08/20/18 Time of Evaluation: 08:00 - Subjective Subjective: Patient seen and examined at bedside comfortable. Pain improving, still moderate. Tolerating PT well. No other complaints. Objective - Vital Signs/Intake and Output Vital Signs (last 24 hours): Temp Pulse Resp BP Pulse Ox 98.5 F 83 20 98/59 L 97 08/20/18 08:17 08/20/18 08:17 08/20/18 08:17 08/20/18 08:17 08/20/18 08:17 - Medications Medications: Current Medications Albuterol (Ventolin Hfa 90 Mcg/Actuation (8 G)) 1 puff INH RQID PRN PRN Reason: Shortness of Breath Alprazolam (Xanax) 0.5 mg PO Q8 PRN PRN Reason: Anxiety Last Admin: 08/20/18 08:26 Dose: 0.5 mg Atorvastatin Calcium (Lipitor) [address] [facility] Last Admin: 08/19/18 21:54 Dose: 40 mg Calcium Carbonate (Oscal) 500 mg PO DAILY [facility] Last Admin: 08/20/18 08:19 Dose: 500 mg Docusate Sodium (Colace) 100 mg PO BID [facility] Last Admin: 08/20/18 08:18 Dose: 100 mg Duloxetine HCl (Cymbalta) [address] [facility] Last Admin: 08/19/18 21:54 Dose: 60 mg Enoxaparin Sodium (Lovenox) 40 mg SC DAILY [facility]; Protocol Last Admin: 08/20/18 08:19 Dose: 40 mg Ferrous Sulfate (Feosol) 325 mg PO BID [facility] Last Admin: 08/20/18 08:19 Dose: 325 mg Hydrocortisone (Cortizone 1% Cream) 1 applic TOP BID [facility] Last Admin: 08/20/18 08:19 Dose: Not Given Lactulose (Enulose) 20 gm PO Q12 PRN PRN Reason: Constipation Last Admin: 08/18/18 06:57 Dose: 20 gm Memantine (Namenda) 10 mg PO DAILY [facility] Last Admin: 08/20/18 08:19 Dose: 10 mg Metformin HCl (Glucophage) 1,000 mg PO BID [facility] Last Admin: 08/20/18 08:19 Dose: 1,000 mg Montelukast Sodium (Singulair) 10 mg PO 2100 [facility] Ondansetron HCl (Zofran Odt) 4 mg PO Q8H PRN PRN Reason: Nausea/Vomiting Pantoprazole Sodium (Protonix Ec Tab) 40 mg PO DAILY [facility] Last Admin: 08/20/18 08:21 Dose: 40 mg Fluticasone/Salmeterol (Advair Diskus 250/50) 1 puff INH Q12 [facility] Last Admin: 08/20/18 08:18 Dose: 1 puff Sitagliptin Phosphate (Januvia) 100 mg PO HS [facility] Last Admin: 08/19/18 21:54 Dose: 100 mg Tramadol HCl (Ultram) 50 mg PO Q4 PRN PRN Reason: Pain, moderate (4-7) Tramadol HCl (Ultram) 100 mg PO Q4 PRN PRN Reason: Pain, severe (8-10) Last Admin: 08/20/18 08:26 Dose: 100 mg - Labs Labs: 08/20/18 05:30 08/20/18 05:30 - Extremities Exam Additional comments: R hip: Dressings CDI sensation intact SP/DP/TN motor intact EHL/FHL/TA/G pedal pulses intact calves soft NT b/l Assessment and Plan (1) Status post total hip replacement, right Assessment & Plan: POD #6 S/P R FLAQUITA -PT/OT FWB RLE -DVT ppx -orthopedically stable -above d/w Dr. Conklin in agreement Status: Acute
--- NOTE | 2018-08-20 11:31 | CP.PCM.PN ---
Subjective - Date & Time of Evaluation Date of Evaluation: 08/18/18 Time of Evaluation: 16:00 - Subjective Subjective: no acute complaints at present Objective - Vital Signs/Intake and Output Vital Signs (last 24 hours): Temp Pulse Resp BP Pulse Ox 98.5 F 83 20 98/59 L 97 08/20/18 08:17 08/20/18 08:17 08/20/18 08:17 08/20/18 08:17 08/20/18 08:17 - Medications Medications: Current Medications Albuterol (Ventolin Hfa 90 Mcg/Actuation (8 G)) 1 puff INH RQID PRN PRN Reason: Shortness of Breath Alprazolam (Xanax) 0.5 mg PO Q8 PRN PRN Reason: Anxiety Last Admin: 08/20/18 08:26 Dose: 0.5 mg Atorvastatin Calcium (Lipitor) 40 mg PO HS [facility] Last Admin: 08/19/18 21:54 Dose: 40 mg Calcium Carbonate (Oscal) 500 mg PO DAILY [facility] Last Admin: 08/20/18 08:19 Dose: 500 mg Docusate Sodium (Colace) 100 mg PO BID [facility] Last Admin: 08/20/18 08:18 Dose: 100 mg Duloxetine HCl (Cymbalta) 60 mg PO HS [facility] Last Admin: 08/19/18 21:54 Dose: 60 mg Enoxaparin Sodium (Lovenox) 40 mg SC DAILY [facility]; Protocol Last Admin: 08/20/18 08:19 Dose: 40 mg Ferrous Sulfate (Feosol) 325 mg PO BID [facility] Last Admin: 08/20/18 08:19 Dose: 325 mg Hydrocortisone (Cortizone 1% Cream) 1 applic TOP BID [facility] Last Admin: 08/20/18 08:19 Dose: Not Given Lactulose (Enulose) 20 gm PO Q12 PRN PRN Reason: Constipation Last Admin: 08/18/18 06:57 Dose: 20 gm Memantine (Namenda) 10 mg PO DAILY [facility] Last Admin: 08/20/18 08:19 Dose: 10 mg Metformin HCl (Glucophage) 1,000 mg PO BID [facility] Last Admin: 08/20/18 08:19 Dose: 1,000 mg Montelukast Sodium (Singulair) 10 mg PO 2100 [facility] Ondansetron HCl (Zofran Odt) 4 mg PO Q8H PRN PRN Reason: Nausea/Vomiting Pantoprazole Sodium (Protonix Ec Tab) 40 mg PO DAILY [facility] Last Admin: 08/20/18 08:21 Dose: 40 mg Fluticasone/Salmeterol (Advair Diskus 250/50) 1 puff INH Q12 [facility] Last Admin: 08/20/18 08:18 Dose: 1 puff Sitagliptin Phosphate (Januvia) 100 mg PO HS [facility] Last Admin: 08/19/18 21:54 Dose: 100 mg Tramadol HCl (Ultram) 50 mg PO Q4 PRN PRN Reason: Pain, moderate (4-7) Tramadol HCl (Ultram) 100 mg PO Q4 PRN PRN Reason: Pain, severe (8-10) Last Admin: 08/20/18 08:26 Dose: 100 mg - Labs Labs: 08/20/18 05:30 08/20/18 05:30 - Constitutional Appears: Well - Head Exam Head Exam: ATRAUMATIC, NORMAL INSPECTION, NORMOCEPHALIC - Eye Exam Eye Exam: EOMI, Normal appearance, PERRL Pupil Exam: NORMAL ACCOMODATION - ENT Exam ENT Exam: Mucous Membranes Moist, Normal Exam - Neck Exam Neck Exam: Full ROM, Normal Inspection - Respiratory Exam Respiratory Exam: Clear to Ausculation Bilateral, NORMAL BREATHING PATTERN - Cardiovascular Exam Cardiovascular Exam: REGULAR RHYTHM - GI/Abdominal Exam GI & Abdominal Exam: Soft, Normal Bowel Sounds - Rectal Exam Rectal Exam: NORMAL INSPECTION - Exam External exam: NORMAL EXTERNAL EXAM - Extremities Exam Extremities Exam: Full ROM, Normal Capillary Refill, Normal Inspection - Back Exam Back Exam: NORMAL INSPECTION - Neurological Exam Neurological Exam: Alert Neuro motor strength exam: Right Lower Extremity: 3 - Psychiatric Exam Psychiatric exam: Normal Affect - Skin Skin Exam: Intact Assessment and Plan (1) Primary osteoarthritis of right hip Assessment & Plan: r THR plan for physical, occupational, therapy monitor skin, pain Status: Acute (2) Asthma Status: Chronic (3) Diabetes mellitus Status: Chronic (4) HTN (hypertension) Status: Chronic
--- NOTE | 2018-08-20 11:35 | CP.PCM.PN ---
Subjective - Date & Time of Evaluation Date of Evaluation: 08/20/18 Time of Evaluation: 11:35 - Subjective Subjective: patient with right leg mild discomfort Objective - Vital Signs/Intake and Output Vital Signs (last 24 hours): Temp Pulse Resp BP Pulse Ox 98.5 F 83 20 98/59 L 97 08/20/18 08:17 08/20/18 08:17 08/20/18 08:17 08/20/18 08:17 08/20/18 08:17 - Medications Medications: Current Medications Albuterol (Ventolin Hfa 90 Mcg/Actuation (8 G)) 1 puff INH RQID PRN PRN Reason: Shortness of Breath Alprazolam (Xanax) 0.5 mg PO Q8 PRN PRN Reason: Anxiety Last Admin: 08/20/18 08:26 Dose: 0.5 mg Atorvastatin Calcium (Lipitor) 40 mg PO HS [facility] Last Admin: 08/19/18 21:54 Dose: 40 mg Calcium Carbonate (Oscal) 500 mg PO DAILY [facility] Last Admin: 08/20/18 08:19 Dose: 500 mg Docusate Sodium (Colace) 100 mg PO BID [facility] Last Admin: 08/20/18 08:18 Dose: 100 mg Duloxetine HCl (Cymbalta) 60 mg PO HS [facility] Last Admin: 08/19/18 21:54 Dose: 60 mg Enoxaparin Sodium (Lovenox) 40 mg SC DAILY [facility]; Protocol Last Admin: 08/20/18 08:19 Dose: 40 mg Ferrous Sulfate (Feosol) 325 mg PO BID [facility] Last Admin: 08/20/18 08:19 Dose: 325 mg Hydrocortisone (Cortizone 1% Cream) 1 applic TOP BID [facility] Last Admin: 08/20/18 08:19 Dose: Not Given Lactulose (Enulose) 20 gm PO Q12 PRN PRN Reason: Constipation Last Admin: 08/18/18 06:57 Dose: 20 gm Memantine (Namenda) 10 mg PO DAILY [facility] Last Admin: 08/20/18 08:19 Dose: 10 mg Metformin HCl (Glucophage) 1,000 mg PO BID [facility] Last Admin: 08/20/18 08:19 Dose: 1,000 mg Montelukast Sodium (Singulair) 10 mg PO 2100 [facility] Ondansetron HCl (Zofran Odt) 4 mg PO Q8H PRN PRN Reason: Nausea/Vomiting Pantoprazole Sodium (Protonix Ec Tab) 40 mg PO DAILY [facility] Last Admin: 08/20/18 08:21 Dose: 40 mg Fluticasone/Salmeterol (Advair Diskus 250/50) 1 puff INH Q12 [facility] Last Admin: 08/20/18 08:18 Dose: 1 puff Sitagliptin Phosphate (Januvia) 100 mg PO HS [facility] Last Admin: 08/19/18 21:54 Dose: 100 mg Tramadol HCl (Ultram) 50 mg PO Q4 PRN PRN Reason: Pain, moderate (4-7) Tramadol HCl (Ultram) 100 mg PO Q4 PRN PRN Reason: Pain, severe (8-10) Last Admin: 08/20/18 08:26 Dose: 100 mg - Labs Labs: 08/20/18 05:30 08/20/18 05:30 - Constitutional Appears: Well - Head Exam Head Exam: ATRAUMATIC, NORMAL INSPECTION, NORMOCEPHALIC - Eye Exam Eye Exam: EOMI, Normal appearance, PERRL Pupil Exam: NORMAL ACCOMODATION - ENT Exam ENT Exam: Mucous Membranes Moist, Normal Exam - Neck Exam Neck Exam: Full ROM, Normal Inspection - Respiratory Exam Respiratory Exam: Clear to Ausculation Bilateral, NORMAL BREATHING PATTERN - Cardiovascular Exam Cardiovascular Exam: REGULAR RHYTHM - GI/Abdominal Exam GI & Abdominal Exam: Soft, Normal Bowel Sounds - Rectal Exam Rectal Exam: NORMAL INSPECTION - Exam External exam: NORMAL EXTERNAL EXAM - Extremities Exam Extremities Exam: Full ROM, Normal Capillary Refill - Back Exam Back Exam: NORMAL INSPECTION - Neurological Exam Neurological Exam: Alert, Awake Neuro motor strength exam: Right Lower Extremity: 3 - Psychiatric Exam Psychiatric exam: Normal Affect, Normal Mood - Skin Skin Exam: Dry, Intact Assessment and Plan (1) Primary osteoarthritis of right hip Assessment & Plan: R THR plan for range of motion, strengthening, transfers and gait training equipment evaluaton and DC planning Status: Acute (2) Asthma Status: Chronic (3) Diabetes mellitus Status: Chronic (4) HTN (hypertension) Status: Chronic
[2018-08-21] MEDS: Fluticasone-Salmeterol 250-50mcg Diskus INH SCH ×2 (08:10→21:36)
[2018-08-21] MEDS: Enoxaparin 40 mg Syringe SC SCH (08:11)
[2018-08-21] MEDS: Pantoprazole 40 mg EC Tab PO SCH (08:12)
--- NOTE | 2018-08-21 13:51 | CP.PCM.PN ---
<[place] - Last Filed: 08/21/18 13:52> Subjective - Date & Time of Evaluation Date of Evaluation: 08/21/18 Time of Evaluation: 13:40 - Subjective Subjective: Patient seen and examined at bedside this afternoon with patient's daughter present. No acute overnight events Afebrile with stable vitals Sitting in bed, not in acute distress. Patient complaints of generalized pain on the shoulders and right hip. Patient received pain medications few minutes ago. Patient is very motivated and participates in PT/OT Objective - Vital Signs/Intake and Output Vital Signs (last 24 hours): Temp Pulse Resp BP Pulse Ox 97.9 F 75 20 103/67 99 08/21/18 08:05 08/21/18 08:05 08/21/18 08:05 08/21/18 08:05 08/21/18 08:05 - Medications Medications: Current Medications Albuterol (Ventolin Hfa 90 Mcg/Actuation (8 G)) 1 puff INH RQID PRN PRN Reason: Shortness of Breath Alprazolam (Xanax) 0.5 mg PO Q8 PRN PRN Reason: Anxiety Last Admin: 08/21/18 08:09 Dose: 0.5 mg Atorvastatin Calcium (Lipitor) 40 mg PO HS [facility] Last Admin: 08/20/18 21:47 Dose: 40 mg Calcium Carbonate (Oscal) 500 mg PO DAILY [facility] Last Admin: 08/21/18 08:12 Dose: 500 mg Docusate Sodium (Colace) 100 mg PO BID [facility] Last Admin: 08/21/18 08:11 Dose: 100 mg Duloxetine HCl (Cymbalta) 60 mg PO HS [facility] Last Admin: 08/20/18 21:47 Dose: 60 mg Enoxaparin Sodium (Lovenox) 40 mg SC DAILY [facility]; Protocol Last Admin: 08/21/18 08:11 Dose: 40 mg Ferrous Sulfate (Feosol) 325 mg PO BID [facility] Last Admin: 08/21/18 08:13 Dose: 325 mg Hydrocortisone (Cortizone 1% Cream) 1 applic TOP BID [facility] Last Admin: 08/21/18 08:11 Dose: 1 applic Lactulose (Enulose) 20 gm PO Q12 PRN PRN Reason: Constipation Last Admin: 08/18/18 06:57 Dose: 20 gm Memantine (Namenda) 10 mg PO DAILY [facility] Last Admin: 08/21/18 08:11 Dose: 10 mg Metformin HCl (Glucophage) 1,000 mg PO BID [facility] Last Admin: 08/21/18 08:11 Dose: 1,000 mg Montelukast Sodium (Singulair) 10 mg PO 2100 [facility] Last Admin: 08/20/18 21:48 Dose: Not Given Ondansetron HCl (Zofran Odt) 4 mg PO Q8H PRN PRN Reason: Nausea/Vomiting Pantoprazole Sodium (Protonix Ec Tab) 40 mg PO DAILY [facility] Last Admin: 08/21/18 08:12 Dose: 40 mg Fluticasone/Salmeterol (Advair Diskus 250/50) 1 puff INH Q12 [facility] Last Admin: 08/21/18 08:10 Dose: 1 puff Sitagliptin Phosphate (Januvia) 100 mg PO HS [facility] Last Admin: 08/20/18 21:47 Dose: 100 mg Tramadol HCl (Ultram) 100 mg PO Q4 PRN PRN Reason: Pain, severe (8-10) Last Admin: 08/21/18 13:22 Dose: 100 mg Tramadol HCl (Ultram) 50 mg PO Q4 PRN PRN Reason: Pain, moderate (4-7) - Labs Labs: 08/20/18 05:30 08/20/18 05:30 - Constitutional Appears: Non-toxic, No Acute Distress - Head Exam Head Exam: NORMAL INSPECTION - Eye Exam Eye Exam: EOMI, Normal appearance - ENT Exam ENT Exam: Mucous Membranes Moist - Neck Exam Neck Exam: Full ROM, Normal Inspection - Respiratory Exam Respiratory Exam: Clear to Ausculation Bilateral, NORMAL BREATHING PATTERN. absent: Rhonchi, Wheezes - Cardiovascular Exam Cardiovascular Exam: REGULAR RHYTHM, +S1, +S2 - GI/Abdominal Exam GI & Abdominal Exam: Soft, Normal Bowel Sounds. absent: Tenderness - Extremities Exam Extremities Exam: Normal Capillary Refill. absent: Calf Tenderness Additional comments: dressing in place in right hip. - Neurological Exam Neurological Exam: Alert, Awake, Oriented x3 - Psychiatric Exam Psychiatric exam: Normal Affect, Normal Mood - Skin Skin Exam: Normal Color Assessment and Plan - Assessment and Plan (Free Text) Assessment: 63 year old female patient, with PMHx of DM, Asthma, OA, s/p right THR on 08/14/18 admitted to TCU for physical therapy and rehabilitation. Participating with PT 1.Osteoarthritis of the right hip s/p right THR on 08/14/18 participating with PT Orthopedically stable Continue pain management surgical wound healing well with dressing on Lovenox for DVt prophylaxis Orthopedist Dr. Kate on board Check CBC , BMP 2. Acute blood loss anemia -asymptomatic -H&H 8.3/25.3 on 08/20/18 -f/u AM cbc 3 DM II controlled continue Metformin and Januvia accucheck ACHS, diabetic diet , insulin coverage 4.Asthma stable on Singular and Advir PRN Albuterol 5. HLD on lipitor 6 Depression and Anxiety c/w Xanax and give PRN c/w Namenda 10 mg daily . Continue Cymbalta 7.Dementia patient is on namenda that is dementia medication started from her PMD. 8.HTN on the lower side Hold Cozaar 9.DVT Prophylaxis on Lovenox 40 mg SC 10.Peptic ulcer prophylaxis Pantoprazole 40 mg po daily 11.Code status Full Plan d/w Dr. Lamb <Ghazala Saleem - Last Filed: 08/22/18 03:43> Subjective - Subjective Subjective: Early this AM (~330 AM), patient became angry about not receiving what she states is her full home dose of Xanax, and started to act agitated, yelling at the nurse and sat down on the floor. No acute fall per nurse. Patient was seen and attempt made to examine patient, but she refused. Continues to state that everyone is 'lying' to her. Will give patient extra 0.5 mg of xanax and continue to monitor. Objective - Vital Signs/Intake and Output Vital Signs (last 24 hours): Temp Pulse Resp BP Pulse Ox 97.5 F L 89 20 96/60 L 99 08/21/18 19:27 08/21/18 19:27 08/21/18 19:27 08/21/18 19:27 08/21/18 19:27 - Medications Medications: Current Medications Albuterol (Ventolin Hfa 90 Mcg/Actuation (8 G)) 1 puff INH RQID PRN PRN Reason: Shortness of Breath Alprazolam (Xanax) 0.5 mg PO Q8 [facility] Last Admin: 08/22/18 01:07 Dose: 0.5 mg Alprazolam (Xanax) 0.5 mg PO ONCE ONE Stop: 08/22/18 03:42 Atorvastatin Calcium (Lipitor) 40 mg PO [facility] Last Admin: 08/21/18 21:35 Dose: 40 mg Calcium Carbonate (Oscal) 500 mg PO DAILY [facility] Last Admin: 08/21/18 08:12 Dose: 500 mg Docusate Sodium (Colace) 100 mg PO BID [facility] Last Admin: 08/21/18 16:35 Dose: 100 mg Duloxetine HCl (Cymbalta) 60 mg PO HS [facility] Last Admin: 08/21/18 21:35 Dose: 60 mg Enoxaparin Sodium (Lovenox) 40 mg SC DAILY [facility]; Protocol Last Admin: 08/21/18 08:11 Dose: 40 mg Ferrous Sulfate (Feosol) 325 mg PO BID [facility] Last Admin: 08/21/18 16:34 Dose: 325 mg Home Med (Memantine Hcl [Namenda Xr]) 28 mg PO DAILY [facility] Hydrocortisone (Cortizone 1% Cream) 1 applic TOP BID [facility] Last Admin: 08/21/18 16:35 Dose: 1 applic Lactulose (Enulose) 20 gm PO Q12 PRN PRN Reason: Constipation Last Admin: 08/18/18 06:57 Dose: 20 gm Metformin HCl (Glucophage) 1,000 mg PO BID [facility] Last Admin: 08/21/18 16:34 Dose: 1,000 mg Montelukast Sodium (Singulair) 10 mg PO 2100 [facility] Last Admin: 08/21/18 21:36 Dose: Not Given Ondansetron HCl (Zofran Odt) 4 mg PO Q8H PRN PRN Reason: Nausea/Vomiting Pantoprazole Sodium (Protonix Ec Tab) 40 mg PO DAILY [facility] Last Admin: 08/21/18 08:12 Dose: 40 mg Fluticasone/Salmeterol (Advair Diskus 250/50) 1 puff INH Q12 [facility] Last Admin: 08/21/18 21:36 Dose: 1 puff Sitagliptin Phosphate (Januvia) 100 mg PO [facility] Last Admin: 08/21/18 21:35 Dose: 100 mg Tramadol HCl (Ultram) 100 mg PO Q4 PRN PRN Reason: Pain, severe (8-10) Last Admin: 08/22/18 03:07 Dose: 100 mg Tramadol HCl (Ultram) 50 mg PO Q4 PRN PRN Reason: Pain, moderate (4-7) - Labs Labs: 08/20/18 05:30 08/20/18 05:30 <Homa Lamb - Last Filed: 08/23/18 16:43> Objective - Vital Signs/Intake and Output Vital Signs (last 24 hours): Temp Pulse Resp BP Pulse Ox 98.9 F 81 20 105/65 100 08/23/18 16:09 08/23/18 16:09 08/23/18 16:09 08/23/18 16:09 08/23/18 16:09 - Medications Medications: Current Medications Albuterol (Ventolin Hfa 90 Mcg/Actuation (8 G)) 1 puff INH RQID PRN PRN Reason: Shortness of Breath Alprazolam (Xanax) 1 mg PO Q8 [facility] Last Admin: 08/23/18 16:20 Dose: 1 mg Atorvastatin Calcium (Lipitor) 40 mg PO [facility] Last Admin: 08/22/18 21:17 Dose: 40 mg Calcium Carbonate (Oscal) 500 mg PO DAILY [facility] Last Admin: 08/23/18 08:11 Dose: 500 mg Docusate Sodium (Colace) 100 mg PO BID [facility] Last Admin: 08/23/18 16:17 Dose: 100 mg Duloxetine HCl (Cymbalta) 60 mg PO HS [facility] Last Admin: 08/22/18 21:17 Dose: 60 mg Enoxaparin Sodium (Lovenox) 40 mg SC DAILY [facility]; Protocol Last Admin: 08/23/18 08:12 Dose: 40 mg Ferrous Sulfate (Feosol) 325 mg PO BID [facility] Last Admin: 08/23/18 16:20 Dose: 325 mg Home Med (Memantine Hcl [Namenda Xr]) 28 mg PO DAILY [facility] Last Admin: 08/23/18 08:10 Dose: 28 mg Hydrocortisone (Cortizone 1% Cream) 1 applic TOP BID [facility] Last Admin: 08/23/18 16:18 Dose: 1 applic Ketorolac Tromethamine (Toradol) 10 mg PO Q6 PRN PRN Reason: Pain, severe (8-10) Last Admin: 08/23/18 16:17 Dose: 10 mg Lactulose (Enulose) 20 gm PO Q12 PRN PRN Reason: Constipation Last Admin: 08/18/18 06:57 Dose: 20 gm Metformin HCl (Glucophage) 1,000 mg PO BID [facility] Last Admin: 08/23/18 16:17 Dose: 1,000 mg Montelukast Sodium (Singulair) 10 mg PO 2100 [facility] Last Admin: 08/22/18 21:17 Dose: 10 mg Ondansetron HCl (Zofran Odt) 4 mg PO Q8H PRN PRN Reason: Nausea/Vomiting Pantoprazole Sodium (Protonix Ec Tab) 40 mg PO DAILY [facility] Last Admin: 08/23/18 08:11 Dose: 40 mg Fluticasone/Salmeterol (Advair Diskus 250/50) 1 puff INH Q12 [facility] Last Admin: 08/23/18 08:07 Dose: 1 puff Sitagliptin Phosphate (Januvia) 100 mg PO HS [facility] Last Admin: 08/22/18 21:24 Dose: 100 mg Tramadol HCl (Ultram) 50 mg PO Q4 PRN PRN Reason: Pain, moderate (4-7) - Labs Labs: 08/22/18 06:00 08/22/18 06:00 Attending/Attestation - Attestation I have personally seen and examined this patient.: Yes I have fully participated in the care of the patient.: Yes I have reviewed all pertinent clinical information, including history, physical exam and plan: Yes Notes (Text): 08/23/18 16:43 agree with findings and plan as above.
[2018-08-22 06:47] LABS: BASO % 0.5 % (0.0-2.0); EOS # 0.3 K/uL (0.0-0.7); EOS % 4.4 % (0.0-4.0); HEMOGLOBIN 8.1 g/dL (12.0-16.0); LYMPH % 17.1 % (20.0-40.0); MEAN CELL VOLUME 79.6 fl (81.0-99.0); MEAN CORPUSCULAR HEMOGLOBIN 26.4 pg (27.0-31.0); MEAN CORPUSCULAR HGB CONC 33.1 g/dL (33.0-37.0); MEAN PLATELET VOLUME 7.5 fl (7.2-11.7); MONO # 0.5 K/uL (0.0-0.8); NEUT # 4.1 K/uL (1.8-7.0); NRBC % 0.1 % (0.0-0.0); RBC 3.08 Mil/uL (3.80-5.20); RED CELL DISTRIBUTION WIDTH 16.7 % (11.5-14.5)
[2018-08-22 07:00] LABS: BLOOD UREA NITROGEN 9 mg/dl (7-17); CALCIUM 8.8 mg/dL (8.4-10.2); GFR NON-AFRICAN AMERICAN > 60
[2018-08-22] MEDS: Fluticasone-Salmeterol 250-50mcg Diskus INH SCH ×2 (08:58→21:17)
[2018-08-22] MEDS: Enoxaparin 40 mg Syringe SC SCH (08:58)
[2018-08-22] MEDS: Pantoprazole 40 mg EC Tab PO SCH (08:59)
--- NOTE | 2018-08-22 09:14 | CP.PCM.PN ---
Subjective - Date & Time of Evaluation Date of Evaluation: 08/22/18 Time of Evaluation: 09:12 - Subjective Subjective: Patient states she was having blisters from dressing. She is upset that her xanax was changed. Denies CP/SOB/dizziness/numbness/tingling. No new complaints of hip pain at this time or pain in other extremities. Objective - Vital Signs/Intake and Output Vital Signs (last 24 hours): Temp Pulse Resp BP Pulse Ox 98.3 F 78 18 106/66 97 08/22/18 08:03 08/22/18 08:03 08/22/18 08:03 08/22/18 08:03 08/22/18 08:03 - Medications Medications: Current Medications Albuterol (Ventolin Hfa 90 Mcg/Actuation (8 G)) 1 puff INH RQID PRN PRN Reason: Shortness of Breath Alprazolam (Xanax) 1 mg PO Q8 [facility] Atorvastatin Calcium (Lipitor) 40 mg PO HS [facility] Last Admin: 08/21/18 21:35 Dose: 40 mg Calcium Carbonate (Oscal) 500 mg PO DAILY [facility] Last Admin: 08/22/18 09:00 Dose: 500 mg Docusate Sodium (Colace) 100 mg PO BID [facility] Last Admin: 08/22/18 09:00 Dose: 100 mg Duloxetine HCl (Cymbalta) 60 mg PO HS [facility] Last Admin: 08/21/18 21:35 Dose: 60 mg Enoxaparin Sodium (Lovenox) 40 mg SC DAILY [facility]; Protocol Last Admin: 08/22/18 08:58 Dose: 40 mg Ferrous Sulfate (Feosol) 325 mg PO BID [facility] Last Admin: 08/22/18 08:58 Dose: 325 mg Home Med (Memantine Hcl [Namenda Xr]) 28 mg PO DAILY [facility] Last Admin: 08/22/18 09:00 Dose: 28 mg Hydrocortisone (Cortizone 1% Cream) 1 applic TOP BID [facility] Last Admin: 08/22/18 09:00 Dose: Not Given Lactulose (Enulose) 20 gm PO Q12 PRN PRN Reason: Constipation Last Admin: 08/18/18 06:57 Dose: 20 gm Metformin HCl (Glucophage) 1,000 mg PO BID [facility] Last Admin: 08/22/18 09:01 Dose: 1,000 mg Montelukast Sodium (Singulair) 10 mg PO 2100 [facility] Last Admin: 08/21/18 21:36 Dose: Not Given Ondansetron HCl (Zofran Odt) 4 mg PO Q8H PRN PRN Reason: Nausea/Vomiting Pantoprazole Sodium (Protonix Ec Tab) 40 mg PO DAILY [facility] Last Admin: 08/22/18 08:59 Dose: 40 mg Fluticasone/Salmeterol (Advair Diskus 250/50) 1 puff INH Q12 [facility] Last Admin: 08/22/18 08:58 Dose: 1 puff Sitagliptin Phosphate (Januvia) 100 mg PO HS [facility] Last Admin: 08/21/18 21:35 Dose: 100 mg Tramadol HCl (Ultram) 100 mg PO Q4 PRN PRN Reason: Pain, severe (8-10) Last Admin: 08/22/18 08:57 Dose: 100 mg Tramadol HCl (Ultram) 50 mg PO Q4 PRN PRN Reason: Pain, moderate (4-7) - Labs Labs: 08/22/18 06:00 08/22/18 06:00 - Extremities Exam Additional comments: Right hip: incision cleaned, dressing with small amount of paper tape applied, instructed to keep incision covered due to clothing rubbing on incision site. Calves soft NT neg homans. Sensation intact +DP/PT Pulses , moderate expected swelling to thigh Assessment and Plan (1) Primary osteoarthritis of right hip Assessment & Plan: POD#8 s/p right THR xanax changed back to patient's home dose. Patient has been on this medication long standing, had some noted shaking when it was d/c'd yesterday (prn only) and per Dr. Conklin, medication changed back to 1mg q8h. Will monitor for sedation. PT/OT VTE proph d/w Dr. Dowd, agrees with above Status: Acute
--- NOTE | 2018-08-22 12:47 | RAD ---
PROCEDURE: Right Hip Radiographs. HISTORY: right hip pain, s/p THR COMPARISON: None. FINDINGS: BONES: No acute fracture. Status post right hip arthroplasty. Normally situated femoral head component. JOINTS: Normal. SOFT TISSUES: Postoperative changes in adjacent soft tissues. OTHER FINDINGS: None. IMPRESSION: Right total hip replacement.
--- NOTE | 2018-08-22 14:16 | CP.PCM.PN ---
Subjective - Date & Time of Evaluation Date of Evaluation: 08/22/18 Time of Evaluation: 13:00 - Subjective Subjective: no acute complaints of neck or back back , mild leg discomfort Objective - Vital Signs/Intake and Output Vital Signs (last 24 hours): Temp Pulse Resp BP Pulse Ox 98.3 F 78 18 106/66 97 08/22/18 08:03 08/22/18 08:03 08/22/18 08:03 08/22/18 08:03 08/22/18 08:03 - Medications Medications: Current Medications Albuterol (Ventolin Hfa 90 Mcg/Actuation (8 G)) 1 puff INH RQID PRN PRN Reason: Shortness of Breath Alprazolam (Xanax) 1 mg PO Q8 [facility] Atorvastatin Calcium (Lipitor) 40 mg PO HS [facility] Last Admin: 08/21/18 21:35 Dose: 40 mg Calcium Carbonate (Oscal) 500 mg PO DAILY [facility] Last Admin: 08/22/18 09:00 Dose: 500 mg Docusate Sodium (Colace) 100 mg PO BID [facility] Last Admin: 08/22/18 09:00 Dose: 100 mg Duloxetine HCl (Cymbalta) 60 mg PO HS [facility] Last Admin: 08/21/18 21:35 Dose: 60 mg Enoxaparin Sodium (Lovenox) 40 mg SC DAILY [facility]; Protocol Last Admin: 08/22/18 08:58 Dose: 40 mg Ferrous Sulfate (Feosol) 325 mg PO BID [facility] Last Admin: 08/22/18 08:58 Dose: 325 mg Home Med (Memantine Hcl [Namenda Xr]) 28 mg PO DAILY [facility] Last Admin: 08/22/18 09:00 Dose: 28 mg Hydrocortisone (Cortizone 1% Cream) 1 applic TOP BID [facility] Last Admin: 08/22/18 09:00 Dose: Not Given Ketorolac Tromethamine (Toradol) 10 mg PO Q6 PRN PRN Reason: Pain, severe (8-10) Last Admin: 08/22/18 12:02 Dose: 10 mg Lactulose (Enulose) 20 gm PO Q12 PRN PRN Reason: Constipation Last Admin: 08/18/18 06:57 Dose: 20 gm Metformin HCl (Glucophage) 1,000 mg PO BID [facility] Last Admin: 08/22/18 09:01 Dose: 1,000 mg Montelukast Sodium (Singulair) 10 mg PO 2100 [facility] Last Admin: 08/21/18 21:36 Dose: Not Given Ondansetron HCl (Zofran Odt) 4 mg PO Q8H PRN PRN Reason: Nausea/Vomiting Pantoprazole Sodium (Protonix Ec Tab) 40 mg PO DAILY [facility] Last Admin: 08/22/18 08:59 Dose: 40 mg Fluticasone/Salmeterol (Advair Diskus 250/50) 1 puff INH Q12 [facility] Last Admin: 08/22/18 08:58 Dose: 1 puff Sitagliptin Phosphate (Januvia) 100 mg PO HS [facility] Last Admin: 08/21/18 21:35 Dose: 100 mg Tramadol HCl (Ultram) 50 mg PO Q4 PRN PRN Reason: Pain, moderate (4-7) - Labs Labs: 08/22/18 06:00 08/22/18 06:00 - Constitutional Appears: Well - Head Exam Head Exam: ATRAUMATIC, NORMAL INSPECTION, NORMOCEPHALIC - Eye Exam Eye Exam: EOMI, Normal appearance, PERRL Pupil Exam: NORMAL ACCOMODATION - ENT Exam ENT Exam: Mucous Membranes Moist, Normal Exam - Neck Exam Neck Exam: Full ROM, Normal Inspection - Respiratory Exam Respiratory Exam: Clear to Ausculation Bilateral, NORMAL BREATHING PATTERN - Cardiovascular Exam Cardiovascular Exam: REGULAR RHYTHM - GI/Abdominal Exam GI & Abdominal Exam: Soft, Normal Bowel Sounds - Rectal Exam Rectal Exam: NORMAL INSPECTION - Exam External exam: NORMAL EXTERNAL EXAM - Extremities Exam Extremities Exam: Full ROM, Normal Capillary Refill, Normal Inspection - Back Exam Back Exam: NORMAL INSPECTION - Neurological Exam Neurological Exam: Alert, Awake Neuro motor strength exam: Right Lower Extremity: 3 - Psychiatric Exam Psychiatric exam: Normal Affect, Normal Mood - Skin Skin Exam: Dry, Intact Assessment and Plan (1) Primary osteoarthritis of right hip Assessment & Plan: plan fo rphysical, occuaptional therapy Changed po pain meds , oral toradol,. besides utram Status: Acute (2) Asthma Status: Chronic (3) Diabetes mellitus Status: Chronic (4) HTN (hypertension) Status: Chronic
[2018-08-23] MEDS: Fluticasone-Salmeterol 250-50mcg Diskus INH SCH ×2 (08:07→21:42)
[2018-08-23] MEDS: Pantoprazole 40 mg EC Tab PO SCH (08:11)
[2018-08-23] MEDS: Enoxaparin 40 mg Syringe SC SCH (08:12)
[2018-08-24] MEDS: Fluticasone-Salmeterol 250-50mcg Diskus INH SCH (08:13)
[2018-08-24] MEDS: Pantoprazole 40 mg EC Tab PO SCH (08:15)
[2018-08-24] MEDS: Enoxaparin 40 mg Syringe SC SCH (16:22)
[2018-08-25] MEDS: Pantoprazole 40 mg EC Tab PO SCH (08:37)
[2018-08-25] MEDS: Enoxaparin 40 mg Syringe SC SCH (08:37)
[2018-08-25] MEDS ORDERED: Enoxaparin 40 mg Syringe SC SCH (09:00)
--- NOTE | 2018-08-25 10:03 | CP.PCM.PN ---
Subjective - Date & Time of Evaluation Date of Evaluation: 08/25/18 Time of Evaluation: 08:00 - Subjective Subjective: Patient seen and examined at bedside. She reports pain improves daily, controlled at this time. Tolerating PT well. No other complaints. Objective - Vital Signs/Intake and Output Vital Signs (last 24 hours): Temp Pulse Resp BP Pulse Ox 98.6 F 73 20 105/66 100 08/24/18 19:57 08/24/18 19:57 08/24/18 19:57 08/24/18 19:57 08/24/18 19:57 - Medications Medications: Current Medications Albuterol (Ventolin Hfa 90 Mcg/Actuation (8 G)) 1 puff INH RQID PRN PRN Reason: Shortness of Breath Alprazolam (Xanax) 1 mg PO Q8 [facility] Last Admin: 08/25/18 08:35 Dose: 1 mg Atorvastatin Calcium (Lipitor) 40 mg PO HS [facility] Last Admin: 08/24/18 21:25 Dose: 40 mg Calcium Carbonate (Oscal) 500 mg PO DAILY [facility] Last Admin: 08/25/18 08:37 Dose: 500 mg Docusate Sodium (Colace) 100 mg PO BID [facility] Last Admin: 08/25/18 08:36 Dose: 100 mg Duloxetine HCl (Cymbalta) 60 mg PO HS [facility] Last Admin: 08/24/18 21:28 Dose: 60 mg Enoxaparin Sodium (Lovenox) 40 mg SC DAILY [facility]; Protocol Last Admin: 08/25/18 08:37 Dose: 40 mg Ferrous Sulfate (Feosol) 325 mg PO BID [facility] Last Admin: 08/25/18 08:36 Dose: 325 mg Home Med (Memantine Hcl [Namenda Xr]) 28 mg PO DAILY [facility] Last Admin: 08/25/18 08:35 Dose: 28 mg Hydrocortisone (Cortizone 1% Cream) 1 applic TOP BID [facility] Last Admin: 08/25/18 08:35 Dose: 1 applic Ketorolac Tromethamine (Toradol) 10 mg PO Q6 PRN PRN Reason: Pain, severe (8-10) Last Admin: 08/25/18 07:06 Dose: 10 mg Lactulose (Enulose) 20 gm PO Q12 PRN PRN Reason: Constipation Last Admin: 08/18/18 06:57 Dose: 20 gm Metformin HCl (Glucophage) 1,000 mg PO BID [facility] Last Admin: 08/25/18 08:36 Dose: 1,000 mg Montelukast Sodium (Singulair) 10 mg PO 2100 [facility] Last Admin: 08/24/18 21:26 Dose: 10 mg Ondansetron HCl (Zofran Odt) 4 mg PO Q8H PRN PRN Reason: Nausea/Vomiting Pantoprazole Sodium (Protonix Ec Tab) 40 mg PO DAILY [facility] Last Admin: 08/25/18 08:37 Dose: 40 mg Sitagliptin Phosphate (Januvia) 100 mg PO HS [facility] Last Admin: 08/24/18 21:27 Dose: 100 mg Tramadol HCl (Ultram) 50 mg PO Q4 PRN PRN Reason: Pain, moderate (4-7) Last Admin: 08/25/18 09:31 Dose: 50 mg - Labs Labs: 08/22/18 06:00 08/22/18 06:00 - Extremities Exam Additional comments: R hip: Dressings CDI insicion CDI with richard mild thigh swelling sensation intact SP/DP/TN motor intact EHL/FHL/TA/G pedal pulses intact calves soft NT b/l Assessment and Plan (1) Status post total hip replacement, right Assessment & Plan: POD#11 s/p R FLAQUITA -b/l LE venous duplex performed 08/22/18 reveals no evidence of DVT -PT/OT -DVT ppx -orthopedically stable -above d/w Dr. Conklin in agreement Status: Acute
[2018-08-26 03:48] VITALS: RESP 20
[2018-08-26] MEDS: Enoxaparin 40 mg Syringe SC SCH (08:12)
[2018-08-26] MEDS: Pantoprazole 40 mg EC Tab PO SCH (08:14)
[2018-08-26 08:35] VITALS: BP 113/73; PULSE 65; TEMP 98; O2SAT 96
--- NOTE | 2018-08-26 09:56 | CP.PCM.DIS ---
Provider - Provider Date of Admission: 08/15/18 17:09 Attending physician: Felecia Spangler MD Primary care physician: Dr. Franklyn Mejia Consults: 08/15/18 17:25 Orthopedic Consult Routine Comment: Consulting Provider: Tariq Conklin III Consulting Physician: Tariq Conklin III Reason for Consult: follow up Physiatry Consult Routine Comment: Consulting Provider: Da Ashley Consulting Physician: Da Ashley Reason for Consult: followup Time Spent in preparation of Discharge (in minutes): 20 Hospital Course - Lab Results Lab Results: Most Recent Lab Values WBC 6.0 K/uL (4.8-10.8) 08/22/18 06:00 RBC 3.08 Mil/uL (3.80-5.20) L 08/22/18 06:00 Hgb 8.1 g/dL (12.0-16.0) L 08/22/18 06:00 Hct 24.5 % (34.0-47.0) L 08/22/18 06:00 MCV 79.6 fl (81.0-99.0) L 08/22/18 06:00 MCH 26.4 pg (27.0-31.0) L 08/22/18 06:00 MCHC 33.1 g/dL (33.0-37.0) 08/22/18 06:00 RDW 16.7 % (11.5-14.5) H 08/22/18 06:00 Plt Count 335 K/uL (130-400) 08/22/18 06:00 MPV 7.5 fl (7.2-11.7) 08/22/18 06:00 Neut % (Auto) 69.0 % (50.0-75.0) 08/22/18 06:00 Lymph % (Auto) 17.1 % (20.0-40.0) L 08/22/18 06:00 Waller % (Auto) 9.0 % (0.0-10.0) 08/22/18 06:00 Eos % (Auto) 4.4 % (0.0-4.0) H 08/22/18 06:00 Baso % (Auto) 0.5 % (0.0-2.0) 08/22/18 06:00 Neut # (Auto) 4.1 K/uL (1.8-7.0) 08/22/18 06:00 Lymph # (Auto) 1.0 K/uL (1.0-4.3) 08/22/18 06:00 Waller # (Auto) 0.5 K/uL (0.0-0.8) 08/22/18 06:00 Eos # (Auto) 0.3 K/uL (0.0-0.7) 08/22/18 06:00 Baso # (Auto) 0.0 K/uL (0.0-0.2) 08/22/18 06:00 Sodium 138 mmol/l (132-148) 08/22/18 06:00 Potassium 4.0 MMOL/L (3.6-5.0) 08/22/18 06:00 Chloride 94 mmol/L (98-107) L 08/22/18 06:00 Carbon Dioxide 34 mmol/L (22-30) H 08/22/18 06:00 Anion Gap 14 (10-20) 08/22/18 06:00 BUN 9 mg/dl (7-17) 08/22/18 06:00 Creatinine 0.5 mg/dl (0.7-1.2) L 08/22/18 06:00 Est GFR ( Amer) > 60 08/22/18 06:00 Est GFR (Non-Af Amer) > 60 08/22/18 06:00 POC Glucose (mg/dL) 109 mg/dL (65-110) 08/26/18 05:17 Random Glucose 112 mg/dL (65-105) H 08/22/18 06:00 Calcium 8.8 mg/dL (8.4-10.2) 08/22/18 06:00 - Hospital Course Hospital Course: 63 year old female patient, with PMHx of DM, Asthma, OA, s/p right THR on 08/14/18 admitted to TCU for physical therapy and rehabilitation. Participated well with PT and doing well.Cleraed by ortho for discharge. Will d/c patient home Follow up with Dr. John Toradol PRN for pain ASA 81 mg Po BId for DVt prophylaxis 1.Osteoarthritis of the right hip s/p right THR on 08/14/18 participated with PT Orthopedically stable Continue pain management surgical wound healed well F/u with Dr. Conklin upon discharge continue ASa 81 mg po bid for DVT prophylaxis 2. Acute blood loss anemia asymptomatic stable Continue Ferrous sulfate 3 DM II controlled continue Metformin and Januvia 4.Asthma stable on Singular and Advir PRN Albuterol 5. HLD on lipitor 6 Depression and Anxiety on Xanax, Cymbalta 7.Dementia patient is on namenda that is dementia medication started from her PMD. 8.HTN on the lower side Hold BP meds 9.Peptic ulcer prophylaxis Continue Omeprazole on discharge Discharge Exam - Head Exam Head Exam: ATRAUMATIC, NORMAL INSPECTION, NORMOCEPHALIC - Eye Exam Eye Exam: EOMI, Normal appearance, PERRL Pupil Exam: NORMAL ACCOMODATION - ENT Exam ENT Exam: Mucous Membranes Moist, Normal Exam - Neck Exam Neck exam: Full Rom, Normal Inspection - Respiratory Exam Respiratory Exam: Clear to PA & Lateral, NORMAL BREATHING PATTERN. absent: Rales, Rhonchi, Wheezes, Respiratory Distress - Cardiovascular Exam Cardiovascular Exam: REGULAR RHYTHM, RRR, +S1, +S2. absent: JVD - GI/Abdominal Exam GI & Abdominal Exam: Normal Bowel Sounds, Soft. absent: Distended, Guarding, Rebound, Tenderness - Rectal Exam Rectal Exam: Deferred - Extremities Exam Extremities exam: normal capillary refill, normal inspection, pedal pulses present Additional comments: right hip surgical incision healed well - Back Exam Back exam: NORMAL INSPECTION - Neurological Exam Neurological exam: Alert, CN II-XII Intact, Oriented x3 - Psychiatric Exam Psychiatric exam: Normal Affect, Normal Mood - Skin Skin Exam: Dry, Intact, Normal Color, Warm Discharge Plan - Discharge Medications Prescriptions: Aspirin [Adult Aspirin Regimen] 81 mg PO BID #60 tablet.dr Williamte [Colace] 100 mg PO BID #60 cap Ferrous Sulfate [Feosol] 325 mg PO BID #60 tab Lactulose [Enulose] 20 gm PO Q12 PRN #120 ml PRN Reason: Constipation traMADol [Ultram] 100 mg PO Q4 PRN #30 tab PRN Reason: Pain, Severe (8-10) - Follow Up Plan Condition: GOOD Disposition: HOME/ ROUTINE Patient education suggested?: Yes Instructions: Total Hip Replacement (DC) Referrals: Tariq Conklin III, MD [Staff Provider] -
--- NOTE | 2018-08-26 10:51 | RAD ---
Date of service: 08/25/2018 PROCEDURE: Pelvis HISTORY: Right TKA COMPARISON: Comparison made with prior study 08/22/2018 FINDINGS: BONES: Redemonstrated is a right total hip replacement with satisfactory alignment. Interval improvement postoperative changes within the surrounding subcutaneous tissues. Mild narrowing left hip joint space IMPRESSION: Redemonstrated is a right total hip replacement with satisfactory alignment. Interval improvement postoperative changes within the surrounding subcutaneous tissues.
--- NOTE | 2018-08-26 15:53 | CP.PCM.PN ---
Subjective - Date & Time of Evaluation Date of Evaluation: 08/23/18 Time of Evaluation: 12:00 - Subjective Subjective: no acute complaints at present Objective - Vital Signs/Intake and Output Vital Signs (last 24 hours): Temp Pulse Resp BP Pulse Ox 98 F 65 20 113/73 96 08/26/18 08:18 08/26/18 09:16 08/26/18 09:16 08/26/18 09:16 08/26/18 09:16 - Labs Labs: 08/22/18 06:00 08/22/18 06:00 - Constitutional Appears: Well - Head Exam Head Exam: ATRAUMATIC, NORMAL INSPECTION, NORMOCEPHALIC - Eye Exam Eye Exam: EOMI, Normal appearance, PERRL Pupil Exam: NORMAL ACCOMODATION - ENT Exam ENT Exam: Mucous Membranes Moist, Normal Exam - Neck Exam Neck Exam: Full ROM, Normal Inspection - Respiratory Exam Respiratory Exam: Clear to Ausculation Bilateral, NORMAL BREATHING PATTERN - Cardiovascular Exam Cardiovascular Exam: REGULAR RHYTHM - GI/Abdominal Exam GI & Abdominal Exam: Soft, Normal Bowel Sounds - Rectal Exam Rectal Exam: NORMAL INSPECTION - Exam External exam: NORMAL EXTERNAL EXAM - Extremities Exam Extremities Exam: Full ROM - Back Exam Back Exam: NORMAL INSPECTION - Neurological Exam Neurological Exam: Alert, Awake Neuro motor strength exam: Right Lower Extremity: 3 - Psychiatric Exam Psychiatric exam: Normal Affect, Normal Mood - Skin Skin Exam: Dry, Intact Assessment and Plan (1) Primary osteoarthritis of right hip Assessment & Plan: plan fo rphysical, occupational therapy post duplex scan Status: Acute (2) Asthma Status: Chronic (3) Diabetes mellitus Status: Chronic (4) HTN (hypertension) Status: Chronic
--- NOTE | 2018-08-26 15:57 | CP.PCM.PN ---
Subjective - Date & Time of Evaluation Date of Evaluation: 08/24/18 Time of Evaluation: 13:00 - Subjective Subjective: linda is doing fine at present Objective - Vital Signs/Intake and Output Vital Signs (last 24 hours): Temp Pulse Resp BP Pulse Ox 98 F 65 20 113/73 96 08/26/18 08:18 08/26/18 09:16 08/26/18 09:16 08/26/18 09:16 08/26/18 09:16 - Labs Labs: 08/22/18 06:00 08/22/18 06:00 - Constitutional Appears: Well - Head Exam Head Exam: ATRAUMATIC, NORMAL INSPECTION, NORMOCEPHALIC - Eye Exam Eye Exam: EOMI, Normal appearance, PERRL Pupil Exam: NORMAL ACCOMODATION - ENT Exam ENT Exam: Mucous Membranes Moist, Normal Exam - Neck Exam Neck Exam: Full ROM, Normal Inspection - Respiratory Exam Respiratory Exam: Clear to Ausculation Bilateral, NORMAL BREATHING PATTERN - Cardiovascular Exam Cardiovascular Exam: REGULAR RHYTHM - GI/Abdominal Exam GI & Abdominal Exam: Soft, Normal Bowel Sounds - Rectal Exam Rectal Exam: NORMAL INSPECTION - Exam External exam: NORMAL EXTERNAL EXAM - Extremities Exam Extremities Exam: Full ROM, Normal Capillary Refill, Normal Inspection - Back Exam Back Exam: NORMAL INSPECTION - Neurological Exam Neurological Exam: Alert, Awake Neuro motor strength exam: Right Lower Extremity: 3 - Psychiatric Exam Psychiatric exam: Normal Affect, Normal Mood - Skin Skin Exam: Dry, Intact Assessment and Plan (1) Primary osteoarthritis of right hip Assessment & Plan: right hip surgery. pain meds on tramadol and ultra, PT, Ot therapy Status: Acute (2) Asthma Status: Chronic (3) Diabetes mellitus Status: Chronic (4) HTN (hypertension) Status: Chronic
== END 2018-08-26 13:30 | disposition home or self-care (01) | DRG 560 ==
LOC: H.TCU 17:09
PROVIDERS: ADMIT Internal Medicine; ATTEND Internal Medicine
PROC: F08Z1FZ Dressing Techniques Treatment using Assistive, Adaptive, Supportive or Protective Equipment (ICD-10-PCS; principal; 2018-08-15)
PROC: F08Z2FZ Grooming/Personal Hygiene Treatment using Assistive, Adaptive, Supportive or Protective Equipment (ICD-10-PCS; 2018-08-15)
PROC: F07Z8FZ Transfer Training Treatment using Assistive, Adaptive, Supportive or Protective Equipment (ICD-10-PCS; 2018-08-15)
PROC: F07Z9FZ Gait Training/Functional Ambulation Treatment using Assistive, Adaptive, Supportive or Protective Equipment (ICD-10-PCS; 2018-08-15)
PROC: F07L6GZ Therapeutic Exercise Treatment of Musculoskeletal System - Lower Back / Lower Extremity using Aerobic Endurance and Conditioning Equipment (ICD-10-PCS; 2018-08-15)
DX: Z47.1 Aftercare following joint replacement surgery (principal); D62 Acute posthemorrhagic anemia; Z96.641 Presence of right artificial hip joint; Z96.652 Presence of left artificial knee joint; I10 Essential (primary) hypertension; E78.5 Hyperlipidemia, unspecified; F32.9 Major depressive disorder, single episode, unspecified; F41.9 Anxiety disorder, unspecified; E11.65 Type 2 diabetes mellitus with hyperglycemia; J45.20 Mild intermittent asthma, uncomplicated; F03.90 Unspecified dementia, unspecified severity, without behavioral disturbance, psychotic disturbance, mood disturbance, and anxiety; E78.00 Pure hypercholesterolemia, unspecified; Z88.5 Allergy status to narcotic agent; Z88.0 Allergy status to penicillin; Z88.6 Allergy status to analgesic agent; Z91.040 Latex allergy status